=== PATIENT | female | born 1970 | race Caucasian/White ===

== ENCOUNTER → 2020-04-04 16:11 | Outpatient (BNVA) | payer OTHER, SELFPAY | PROVIDERS: Family Provider Nurse Practitioner; PCP Nurse Practitioner; Visit Provider Nurse Practitioner Family | DX: R13.10 Dysphagia, unspecified (principal); Z90.3 Acquired absence of stomach [part of]; I10 Essential (primary) hypertension; R00.2 Palpitations; M79.10 Myalgia, unspecified site; K21.0 Gastro-esophageal reflux disease with esophagitis; R53.83 Other fatigue; E11.65 Type 2 diabetes mellitus with hyperglycemia | CPT/HCPCS: 80053; 83036; 85025 ==

== ENCOUNTER → 2020-04-08 07:45 | Outpatient (BNVA) | payer OTHER, SELFPAY | PROVIDERS: Family Provider Nurse Practitioner; PCP Nurse Practitioner; Visit Provider Nurse Practitioner | DX: F43.12 Post-traumatic stress disorder, chronic (principal); F90.2 Attention-deficit hyperactivity disorder, combined type | CPT/HCPCS: 99213 ==

== ENCOUNTER 2020-04-18 11:30 | Outpatient (CLI) | payer OTHER, SELFPAY ==
--- NOTE | 2020-04-18 11:35 | FL_ITS ---
WS: [id number] FL barium swallow modifd [id number] REASON FOR EXAM: Other dysphagia FLUOROSCOPY TIME: 2.6 minutes FINDINGS: Fluoroscopy was performed for speech pathology please see their workup in the upper thoraci c esophagus there appears to be a stenotic areas the there was hang-up of the barium slow transmissio n and the barium pill lodged at that area bypass after water was ingested. FL/FL barium swallow modifd [id number] IMPRESSION: Suspect stenosis and spasm in the thoracic esophagus.
== END 2020-04-18 11:31 | disposition home or self-care (01) ==
LOC: RAD 11:34
PROVIDERS: PCP Internal Medicine; Visit Provider Nurse Practitioner Family
DX: R13.10 Dysphagia, unspecified (principal); Z90.3 Acquired absence of stomach [part of]
CPT/HCPCS: 74230; 92611

== ENCOUNTER 2020-04-23 08:28 | Emergency (ER) | payer OTHER, SELFPAY ==
[2020-04-23 08:34] VITALS: BP 177/93; PULSE 62; RESP 18; TEMP 36.8; O2SAT 98; BMI 36.8
[2020-04-23 08:40] VITALS: BP 165/89; PULSE 68; RESP 18
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
--- NOTE | 2020-04-23 09:03 | CTR_ITS ---
PROCEDURE INFORMATION: Exam: CT Cervical Spine Without Contrast Exam date and time: 04/23/2020 9:11 AM Age: 49 years old Clinical indication: Neck pain; Additional info: Neck pain with cervical radiculopathy TECHNIQUE: Imaging protocol: Computed tomography images of the cervical spine without contrast. Radiation optimization: All CT scans at this facility use at least one of these dose optimization techniques: automated exposure control; mA and/or kV adjustment per patient size (includes targeted exams where dose is matched to clinical indication); or iterative reconstruction. COMPARISON: No relevant prior studies available. RADIATION DOSE METRICS: Total DLP (mGy-cm): 772.53 FINDINGS: Vertebrae: No acute osseous pathology. Anatomic alignment. Diminished cervical lordosis. 1.0 cm intraosseous hemangioma in the right C6 vertebral body. Discs/Spinal canal/Neural foramina: Multilevel degenerative change and disc bulging. Right lateral C5-C6 disc bulging with mild right-sided foraminal stenosis. Note that assessment of disc, spinal cord, and nerve root pathology is limited in the absence of intrathecal contrast. Soft tissues: Unremarkable. Lymph nodes: Subcentimeter lymph nodes. Lungs: Unremarkable apices as visualized. CT/CT cervical spin wo con* [id number] IMPRESSION: 1. Multilevel degenerative change and disc bulging. 2. Right lateral C5-C6 disc bulging with mild right-sided foraminal stenosis. Radiation Dose CTDIVOL = (mGy): DLP = 772.53 (mGy-cm)
[2020-04-23] MEDS: orphenadrine 30 mg/mL Inj 2 mL 60 MG IVP (09:48)
[2020-04-23] MEDS: ondansetron 2 mg/ML SDV 2 mL 4 MG IVP (09:48)
[2020-04-23 09:49] VITALS: RESP 18; O2SAT 98
[2020-04-23] MEDS: HYDROmorphone 1 mg/mL INJ 1 mL 0.5 MG IVP (09:49)
[2020-04-23 10:24] VITALS: BP 155/80; PULSE 65; RESP 18
== END 2020-04-23 10:24 | disposition home or self-care (01) ==
PROVIDERS: Emergency Provider Family Medicine; PCP Internal Medicine
DX: M50.122 Cervical disc disorder at C5-C6 level with radiculopathy (principal); I10 Essential (primary) hypertension
CPT/HCPCS: 12345; 72125; 96374; 96375; 99283; J1170; J2360; J2405

== ENCOUNTER 2020-05-02 08:33 | Day surgery (SDC) | payer OTHER, SELFPAY ==
[2020-04-21 10:52] VITALS: BMI 36.8
[2020-05-02 09:00] VITALS: BP 131/93; PULSE 69; RESP 18; TEMP 37.1; O2SAT 99
--- NOTE | 2020-05-02 09:04 | ANES.PREANE2 ---
Pre-Anesthetic Assessment Pre-Anesthetic Assessment: Height/Weight: Height 1.7 m Weight 106.594 kg Temp Pulse Resp BP Pulse Ox 98.8 F 69 18 131/93 99 05/02/20 09:00 05/02/20 09:00 05/02/20 09:00 05/02/20 09:00 05/02/20 09:00 Preop Diagnosis: dysph Proposed Procedure: Operation Date: 05/02/20 09:30 Proposed Procedures p EGD With Botox Injection 83646 K22.4(Not Applicable) - Dewey Davis MD Familial anesthetic complications: None Was Beta Aaron taken within 24 hours: Yes Last intake: Intake Last Liquid Date 05/01/20 Last Liquid Time 23:30 Last Solid Date 05/01/20 Last Solid Time 23:30 Social: Social History: No alcohol and No tobacco Exam: Pre-Anes Outpt Exam: alert, oriented x 3, clear to auscultation bilaterally and regular rate & rhythm Airway: Cervical ROM: WNL MP: 3 Additional comments: removed Pulmonary: Pulmonary: None reported CV/HEM: CV/HEM: HTN : : None reported Hepatic: Comments: URIARTE w/ increased LFT GI: Comments: dysphagia, hx stomach resection no NG tube Metabolic: Metabolic: DM and Morbid obesity Musc/skel: Musc/skel: None reported Neuropsych: Neuropsych: None reported Anesthetic Plan: ASA status: 2 Anesthesia: MAC Risk of > 500 ml blood loss (7ml/kg in children): No PFSH Anesthesia PFSH: Medical History (Updated 05/01/20 @ 00:00 by ) HTN (hypertension) Hyperglycemia Myalgia Palpitations Post-traumatic stress disorder, chronic Reflux esophagitis Surgical History History of resection of stomach Family History Father Heart disease Family/Other Diabetes General Social History Smoking and tobacco status: never smoked Alcohol intake: current Alcohol intake frequency: holidays/special occasions only History of recent travel: No Female Reproductive History: Date of last menstrual period: 12/14/08 Data Anesthesia Cardiac Studies: No Data to Display
[2020-05-02] MEDS: sodium chloride 0.9% 1,000 ML 30 ML IV (09:15)
[2020-05-02 09:23] LABS: Glucose Point of Care 108 mg/dL (70-110)
--- NOTE | 2020-05-02 10:02 | W.PM.OPSUD ---
Surgery/Procedure H&P Update DATE OF PROCEDURE: May 02, 2020 DATE H&P PERFORMED: 04/19/20 PREOP DIAGNOSIS: dysph PLANNED PROCEDURE: Operation Date: 05/02/20 09:30 Proposed Procedures p EGD With Botox Injection 00357 K22.4(Not Applicable) - Dewey Davis MD
[2020-05-02 10:37] VITALS: BP 112/75; PULSE 73; RESP 16; TEMP 37.1; O2SAT 96
--- NOTE | 2020-05-02 10:47 | ANE.PACU2 ---
Inpatient post-anesthesia follow up: Airway intact: Yes Vital signs: Temperature 98.7 F Pulse Rate 73 Respiratory Rate 16 Blood Pressure 112/75 Pulse Oximetry 96 Oxygen Delivery Me thod Nasal Cannula Oxygen Flow Rate 2.0 Fraction of Inspir ed Oxygen Hydration adequate: Yes Nausea and vomiting: No Mental status: Baseline
[2020-05-02 10:50] VITALS: BP 129/79; PULSE 71; RESP 18; O2SAT 98
[2020-05-03 06:24] LABS: H. Pylori / CLO Test Negative
== END 2020-05-02 11:00 | disposition home or self-care (01) ==
PROVIDERS: PCP Internal Medicine; Visit Provider Internal Medicine
PROC: 3E0G8TZ Introduction of Destructive Agent into Upper GI, Via Natural or Artificial Opening Endoscopic (ICD-10-PCS; CPT 43236; principal; 2020-05-02 09:30)
DX: K22.4 Dyskinesia of esophagus (principal); Z98.84 Bariatric surgery status; K29.70 Gastritis, unspecified, without bleeding; I10 Essential (primary) hypertension; E11.9 Type 2 diabetes mellitus without complications; E66.01 Morbid (severe) obesity due to excess calories; Z68.36 Body mass index [BMI] 36.0-36.9, adult
CPT/HCPCS: 12345; 36416; 43236; 82962; 87077; J0585; J2704; J7030

== ENCOUNTER 2020-06-29 08:08 | Outpatient (CLI) | payer OTHER, SELFPAY ==
--- NOTE | 2020-06-29 08:45 | MR_ITS ---
WS: [id number] MRI CERVICAL SPINE NONCONTRAST TECHNIQUE: Sagittal T1, T2 and STIR imaging. Axial T2, gradient, and fiesta imaging. CLINICAL INFORMATION: M50.20 Other cervical disc displacement, unspecified cerv... COMPARISON: None. FINDINGS: Straightening of the normal cervical lordosis. No high-grade central canal narrowing. Cord signal is normal. Mild disc bulging C5-C6 and C6-C7. C2-C3: Normal. C3-C4: Minimal disc osteophytic ridging. Spinal canal and foramen are patent. Mild facet arthropathy. C4-C5: Mild disc osteophyte complex with endplate ridging. Tiny central disc osteophyte protrusion wi th slight effacement of ventral thecal sac. Mild left foraminal narrowing. Mild facet arthropathy. C5-C6: Disc osteophyte complex with endplate ridging. Mild central canal stenosis. Mild bilateral bon y foraminal narrowing left greater than right. Mild facet arthropathy. C6-C7: Shallow right pericentral disc osteophyte protrusion with slight effacement of ventral thecal sac. Mild facet arthropathy. Spinal canal and foramen are patent. C7-T1: Left eccentric disc osteophytic ridging. Mild left greater than right foraminal narrowing. Spi nal canal is patent. T1-T2: Normal. Disc bulging at C5-C6 and C6-C7 has slightly progressed since the MRI in 2013. MR/MR cervical spin wo con* [id number] IMPRESSION: 1. Straightening of the normal cervical lordosis. Cord signal is normal. 2. Mild central canal stenosis C5-C6 and C6-C7 due to shallow disc osteophyte protrusions more prominent at C5-6. 3. Mild bony foraminal narrowing more prominent at bilateral C5-C6 and left C7 -T1.
== END 2020-06-29 08:09 | disposition home or self-care (01) ==
LOC: RADSHAW 08:11
PROVIDERS: PCP Internal Medicine; Visit Provider Internal Medicine
DX: M50.20 Other cervical disc displacement, unspecified cervical region (principal); M48.02 Spinal stenosis, cervical region; M25.78 Osteophyte, vertebrae
CPT/HCPCS: 72141

== ENCOUNTER → 2020-07-28 15:48 | Outpatient (BNVA) | payer OTHER, SELFPAY | PROVIDERS: PCP Internal Medicine; Visit Provider Family Medicine | DX: Z20.828 Contact with and (suspected) exposure to other viral communicable diseases (principal) | CPT/HCPCS: 87635 ==

== ENCOUNTER → 2020-08-03 07:32 | Outpatient (BNVA) | payer OTHER, SELFPAY | PROVIDERS: PCP Internal Medicine; Visit Provider Nurse Practitioner | DX: F43.12 Post-traumatic stress disorder, chronic (principal); F90.2 Attention-deficit hyperactivity disorder, combined type | CPT/HCPCS: 99214 ==

== ENCOUNTER 2020-08-29 19:51 | Observation (INO) | payer OTHER, MEDICARE, SELFPAY ==
[2020-08-29] VITALS (8 sets, daily range): BP systolic 130–188; BP diastolic 70–106; PULSE 64–80; RESP 14–17; TEMP 36.2–36.5; O2SAT 92–97; BMI 36.0
--- NOTE | 2020-08-29 19:53 | ECG_ITS ---
[facility] Test Date: 2020-08-29 Pat Name: Reena Calvo Department: Room: Gender: Female [employer]: : 1970 Requested By: Luiz Bentley Order Number: [id number] Chacon MD: Eliana Olivares M.D. Measurements Intervals [place] Rate: 77 P: 51 VT: 164 QRS: 13 QRSD: 98 T: 23 QT: 374 QTc: 424 Interpretive Statements SINUS RHYTHM Compared to ECG 05/30/2016 08:01:19 Sinus bradycardia no longer present Electronically Signed On 08-30-2020 7:15:57 CDT by Eliana Olivares M.D. [id number]
--- NOTE | 2020-08-29 19:53 | XR_ITS ---
WS: [id number] Exam: XR chest 1V portable [id number] Date/Time of Exam: 08/29/2020 8:25 PM Reason For Exam: cp Findings: Comparison 01/28/2015. The lungs are clear and fully expanded. Normal cardiomediastinal structures and bony elements. No ple ural effusions. Monitor leads superimpose the chest. XR/XR chest 1V portable [id number] IMPRESSION: 1. Negative chest.
--- NOTE | 2020-08-29 19:59 | ED_ITS ---
HPI - Chest Pain General: Chief Complaint: Chest Pain Stated Complaint: cp Time Seen by Provider: 08/29/20 19:54 Source: patient Mode of arrival: ambulatory Limitations: no limitations History of Present Illness: HPI narrative: 50-year-old female states she has been having chest pain over the last 2 days. States been a sharp pain in center of her chest that radiates to her back. She states she also had epigastric abdominal pain. She saw her PCP 2 days ago and switched to a new antiacid and states it has not improved and is worsened. She denies any shortness of breath. She states that she does have a history of high blood pressure and is a diabetic. She has a strong family history of heart disease. MD complaint: chest pain Associated symptoms: Deny abdominal pain, dyspnea, fever(s), nausea or vomiting Review of Systems Const: Denies: fever(s), chills, body aches or change in appetite Eyes: Denies: blurry vision or eye discomfort ENMT: Denies: throat pain or dental pain Card: Reports: chest pain Resp: Denies: dyspnea GI: Denies: abdominal pain, nausea, vomiting or diarrhea : Denies: dysuria Musc: Denies: neck pain or back pain Skin/Breast: Denies: rash Neuro: Denies: headache(s) Psych: Denies: depression Arnold/Lymph: Denies: easy bruising All/Imm: Denies: urticaria PFSH ED PFSH: Medical History HTN (hypertension) Hyperglycemia Myalgia Palpitations Post-traumatic stress disorder, chronic Reflux esophagitis Surgical History History of resection of stomach Family History Father Heart disease Family/Other Diabetes General Social History Smoking and tobacco status: never smoked Alcohol intake: current Alcohol intake frequency: holidays/special occasions only History of recent travel: No Female Reproductive History: Date of last menstrual period: 12/14/08 Physical Exam Const: COMMON NORMALS: no acute distress, patient oriented x3 and healthy appearing HENMT: COMMON NORMALS: normocephalic and atraumatic HEAD & SCALP: normocephalic and atraumatic Eye: COMMON NORMALS: Equal, round and reactive pupils present and EOMs intact bilaterally PUPIL: Yes Equal, round and reactive pupils present Neck/C-Spine: COMMON NORMALS: full ROM and supple Chest: COMMONS NORMALS: normal inspection of the chest and normal palpation of entire chest wall Resp: COMMON NORMALS: normal respiratory effort, No retractions, No use of accessory muscles and clear to auscultation bilaterally AUSCULTATION: clear to auscultation bilaterally Cardio: COMMON NORMALS: regular rate, regular rhythm and No murmurs present (Cardio) RATE: regular rate RHYTHM: regular rhythm GI: COMMON NORMALS: Normal to inspection, nondistended, normoactive bowel sounds present, Soft to palpation, non-tender and no masses PALPATION: Yes Soft to palpation Extremity: COMMON NORMALS: normal to inspection and full ROM Neuro: COMMON NORMALS: patient oriented x3, moves all extremities and no focal motor deficits Psych: COMMON NORMALS: mental status grossly normal, Normal thought process present and cooperative THOUGHT PROCESS: Normal thought process present Skin: COMMON NORMALS: no rashes or lesions noted and no wounds GENERAL SKIN EXAM: no rashes or lesions noted Course Vital Signs: Vital signs: Vital Signs Temperature 97.1 F L 08/29/20 19:55 Pulse Rate 64 08/29/20 21:15 Respiratory Rate 14 08/29/20 21:15 Blood Pressure 137/89 08/29/20 21:15 Pulse Oximetry 97 08/29/20 21:15 MDM - Chest Pain MDM Narrative: Medical decision making narrative: Reena presents here with chest pain. Her initial troponin and EKG here are normal. Patient has multiple risk factors. Patient's x-ray here is normal. Patient's had multiple family members with heart attacks in the 40s she states that her last stress test was 19 years ago. I spoke to the hospitalist and will admit for observation she likely needs a stress test. Lab Data: Labs: Lab Results 08/29/20 08/29/20 08/29/20 Range/Units 20:10 20:10 20:10 WBC Cancelled Corrected WBC Cancelled RBC Cancelled Hgb Cancelled Hct Cancelled MCV Cancelled MCH Cancelled MCHC Cancelled RDW Cancelled Plt Count Cancelled MPV Cancelled Gran % Cancelled Neut % (Auto) Cancelled Lymph % (Auto) Cancelled [place] % (Auto) Cancelled Eos % (Auto) Cancelled Baso % (Auto) Cancelled Neut # (Auto) Cancelled Lymph # (Auto) Cancelled [place] # (Auto) Cancelled Eos # (Auto) Cancelled Baso # (Auto) Cancelled Absolute Gran (aut o) Cancelled Nucleated RBC % (a uto) Cancelled Nucleated RBCs # Cancelled PT 13.40 (12.1-14.9) SECO NDS INR 0.99 (0.8-1.2) D-Dimer 0.57 (0-0.59) ug/mIFE U Sodium 136 (136-145) mmol/L Potassium 4.2 (3.5-5.1) mmol/L Chloride 98 (98-107) mmol/L Carbon Dioxide 25 (22-29) mmol/L Anion Gap 17.2 (5-19) BUN 11 (6-20) mg/dL Creatinine 0.8 (0.5-0.9) mg/dL GFR Calculation 76.2 L (90-130) mL/min Glucose 105 (65-115) mg/dL Calculated Osmolal ity 282 L (285-295) mOsm/k g Calcium 9.2 (8.5-10.5) mg/dL Total Bilirubin 0.2 (0.15-1.2) mg/dL AST 48 H (0-32) U/L ALT 50 H (0-33) U/L Alkaline Phosphata se 61 (35-105) IU/L Troponin T Baselin e (0-10) ng/L Total Protein 7.8 (6.6-8.7) g/dL Albumin 4.5 (3.5-5.2) g/dL Globulin 3.3 (1.3-4.6) g/dL Lipase 74 H (13-60) U/L 08/29/20 08/29/20 Range/Units 20:10 20:35 WBC 10.8 H Corrected WBC RBC 4.82 Hgb 14.6 Hct 43.9 MCV 91.1 MCH 30.3 MCHC 33.3 RDW 13.1 Plt Count 317 MPV 11.0 H Gran % Neut % (Auto) 49.4 Lymph % (Auto) 40.1 [place] % (Auto) 5.5 Eos % (Auto) 3.9 Baso % (Auto) 0.8 Neut # (Auto) 5.34 Lymph # (Auto) 4.3 [place] # (Auto) 0.6 Eos # (Auto) 0.4 Baso # (Auto) 0.1 Absolute Gran (aut o) Nucleated RBC % (a uto) 0 Nucleated RBCs # 0.0 PT (12.1-14.9) SECO NDS INR (0.8-1.2) D-Dimer (0-0.59) ug/mIFE U Sodium (136-145) mmol/L Potassium (3.5-5.1) mmol/L Chloride (98-107) mmol/L Carbon Dioxide (22-29) mmol/L Anion Gap (5-19) BUN (6-20) mg/dL Creatinine (0.5-0.9) mg/dL GFR Calculation (90-130) mL/min Glucose (65-115) mg/dL Calculated Osmolal ity (285-295) mOsm/k g Calcium (8.5-10.5) mg/dL Total Bilirubin (0.15-1.2) mg/dL AST (0-32) U/L ALT (0-33) U/L Alkaline Phosphata se (35-105) IU/L Troponin T Baselin e 6 (0-10) ng/L Total Protein (6.6-8.7) g/dL Albumin (3.5-5.2) g/dL Globulin (1.3-4.6) g/dL Lipase (13-60) U/L Imaging Data^: CXR: Attestation: I personally reviewed and interpreted this imaging study as follows: My impression: no acute abnormality EKG Data^: EKG 1: Attestation: I personally reviewed and interpreted this EKG as follows: EKG interpretation date: 08/29/20 EKG interpretation time: 19:57 Interpretation: nsr hr [address] or t wave abnormalities qrs 98 qtc 406 EKG 2: Attestation: I personally reviewed and interpreted this EKG as follows: EKG interpretation date: 08/29/20 EKG interpretation time: 21:33 Interpretation: nsr hr [address] or t wave abnormalities qrs 93 qtc 408 Discharge Plan Discharge Patient Disposition: Admitted As Inpatient Clinical Impression: Chest pain Qualifiers: Chest pain type: unspecified Qualified Code(s): R07.9 - Chest pain, unspecified Condition: Stable Referrals: Dewey Davis MD [Primary Care Provider] - Coding Level of Care Code ED [employer]working [employer] Hand for Chg Fwd Exam Comprehensive
[2020-08-29] MEDS: aspirin 81 mg Chew Tablet 324 MG PO (20:15)
[2020-08-29] MEDS: nitroglycerin 0.4 mg sublingual Tablet SUBLINGUAL (20:15)
[2020-08-29 20:45] LABS: Basophils # 0.1 10^3/uL (0.0-0.1); Basophils % 0.8 %; Eosinophils # 0.4 10^3/uL (0.0-0.8); Eosinophils % 3.9 %; Hematocrit 43.9 % (37.0-47.0); Hemoglobin 14.6 g/dL (11.5-15.3); Lymphocytes # 4.3 10^3/uL (0.8-4.8); Lymphocytes % 40.1 %; Mean Corpuscular HGB Conc 33.3 g/dL (30.0-36.0); Mean Corpuscular Hemoglobin 30.3 pg (28.0-34.0); Mean Corpuscular Volume 91.1 fL (81-99); Monocytes # 0.6 10^3/uL (0.2-0.9); Monocytes % 5.5 %; Neutrophils # 5.34 10^3/uL (1.8-7.7); Neutrophils % 49.4 %; Nucleated Red Blood Cells % 0 %; Platelet Count 317 10^3/cmm (130-400); Red Blood Count 4.82 10^6/uL (4.1-5.3); Red Cell Distribution Width 13.1 % (12.1-15.1); White Blood Count 10.8 10^3/uL (4.0-10.0)
[2020-08-29 20:49] LABS: Alanine Aminotransferase 50 U/L (0-33); Albumin Level 4.5 g/dL (3.5-5.2); Alkaline Phosphatase 61 IU/L (35-105); Blood Urea Nitrogen 11 mg/dL (6-20); Calcium 9.2 mg/dL (8.5-10.5); Carbon Dioxide 25 mmol/L (22-29); Chloride 98 mmol/L (98-107); Globulin 3.3 g/dL (1.3-4.6); Glomerular Filtration Rate 76.2 mL/min (90-130); Glucose 105 mg/dL (65-115); Lipase 74 U/L (13-60); Osmolality Calculated 282 mOsm/kg (285-295); Sodium 136 mmol/L (136-145); Total Bilirubin 0.2 mg/dL (0.15-1.2); Total Protein 7.8 g/dL (6.6-8.7)
[2020-08-29 20:50] LABS: Troponin(5th) Baseline 6 ng/L (0-10)
[2020-08-29 20:51] LABS: Anion Gap 17.2 (5-19)
[2020-08-29 20:52] LABS: Aspartate Amino Transferase 48 U/L (0-32); Potassium 4.2 mmol/L (3.5-5.1)
[2020-08-29 21:11] LABS: INR 0.99 (0.8-1.2)
[2020-08-29 21:13] LABS: D Dimer 0.57 ug/mIFEU (0-0.59)
[2020-08-29] MEDS: ondansetron 2 mg/ML SDV 2 mL 4 MG IVP (21:44)
--- NOTE | 2020-08-29 21:49 | PM.HP ---
Providers/Chief Complaint Primary Care Provider: Dewey Davis MD Chief Complaint: cp History of Present Illness Reena Calvo is a 50 year old female who carries significant history of gastritis, previous EGD 04/23 showed showed dyskinesia of esophagus, gastritis, with erosions, esophageal spasm, family history of premature coronary disease, came in today with chief complaint of chest pain. She has been experiencing epigastric discomfort which she initially attributed to GERD, her antacid has been changed recently which seemed to relieve her symptoms. Patient is stating that today at work around 5:55 PM she started experiencing substernal discomfort which was radiating towards her neck and back, it lasted for about 3 seconds, it made her feel very uncomfortable, she also felt dizzy which she is describing as lightheadedness. She did not experience any falls, her pain subsided spontaneously, no recurrence of symptoms, she went to the ER, EKG showing normal sinus rhythm, troponins negative x2, unremarkable blood work, D-dimer negative, abnormal transaminases, At the time my evaluation blood pressure 140/90, afebrile, pulse 66, not complaining of active chest pain Review of Systems Const: Denies: fever(s), chills or fatigue Eyes: Denies: change in vision ENMT: Reports: throat pain Card: Reports: chest pain and pre-syncope; Denies: palpitations, irregular heart rhythm, swelling of feet/ankles, dyspnea on exertion or orthopnea Resp: Denies: dyspnea GI: Reports: abdominal pain and nausea; Denies: vomiting, diarrhea or constipation : Denies: flank pain Musc: Reports: neck pain Skin/Breast: Denies: rash Neuro: Denies: headache(s) Psych: Denies: anxiety Endo: Denies: polyuria Arnold/Lymph: Denies: easy bruising All/Imm: Denies: urticaria Medications/Allergies Home Medications Medication Instructions Recorded Confirmed Last Taken Type rzbjgnq-egusmebdbuekq-fcaxmrvl 250 1 tab PO DAILY PRN tab 11/10/19 08/24/20 Unknown History mg-250 mg-65 mg tablet bupropion HCl 150 mg tablet,12 hr 150 mg PO DAILY tab 11/10/19 08/24/20 05/01/20 History sustained-release cetirizine 10 mg capsule 10 mg PO DAILY cap 11/10/19 08/24/20 05/01/20 History multivitamin 1 tab PO QAM 11/10/19 08/24/20 05/01/20 History DIM SGS + 1 cap PO DAILY 04/26/20 08/24/20 05/01/20 History blood-glucose meter #1 each 04/26/20 08/24/20 Unknown Rx ibuprofen 800 mg tablet 800 mg PO Q8H 06/10/20 08/24/20 Unknown History metformin 500 mg tablet 500 mg PO BID #60 tab 06/30/20 08/24/20 Unknown Rx furosemide 20 mg tablet 20 mg PO QAM PRN #30 tab 07/05/20 08/24/20 Unknown Rx lisinopril 30 mg tablet 15 mg PO DAILY tab 07/05/20 08/24/20 Unknown History fluticasone propionate 50 2 spray INTRANASAL DAILY #9.9 ml 07/26/20 08/24/20 Unknown Rx mcg/actuation nasal spray,suspension clonazepam 0.5 mg tablet 0.5 mg PO TID PRN #90 tab 08/03/20 08/24/20 Unknown Rx metoprolol succinate 25 mg 25 mg PO DAILY #90 tab 08/17/20 08/24/20 Unknown Rx tablet,extended release 24 hr dexlansoprazole 60 mg 60 mg PO DAILY #30 cap 08/24/20 08/24/20 Unknown Rx capsule,biphase delayed release Allergies Allergy/AdvReac Type Severity Reaction Status Date / Time ketorolac [From Toradol] Allergy Severe ALGY-Anaphy Verified 08/29/20 20:00 laxis morphine Allergy Severe ADR-Chest Verified 08/29/20 20:00 Pain bupivacaine Allergy Unknown ALGY-Hives Verified 08/29/20 20:00 chlorpheniramine Allergy Unknown ALGY-Wheezi Verified 08/29/20 20:00 [From Creomulsion Complete] ng cyclobenzaprine Allergy Unknown Unknown Verified 08/29/20 20:00 [From Flexeril] dextromethorphan Allergy Unknown ALGY-Wheezi Verified 08/29/20 20:00 [From Creomulsion Complete] ng pseudoephedrine Allergy Unknown ALGY-Wheezi Verified 08/29/20 20:00 [From Creomulsion Complete] ng PFSH Acute PFSH: Medical History Depression History of retinal detachment surgerical repair HTN (hypertension) Hyperglycemia Myalgia Obesity Palpitations Paresthesia Bulging disc, paresthesia upper extremities, Post-traumatic stress disorder, chronic Reflux esophagitis Sleep apnea, obstructive Vitamin D deficiency Surgical History History of back surgery History of carpal tunnel release of both wrists History of cholecystectomy History of hysterectomy History of resection of stomach History of tonsillectomy Family History Father Heart disease CA age 46, Family/Other Diabetes General Sister Heart disease sister had CA, LAD involvement @ age 42 Social History Smoking and tobacco status: never smoked Alcohol intake: current Alcohol intake frequency: holidays/special occasions only History of recent travel: No Female Reproductive History: Date of last menstrual period: 12/14/08 Vitals/I&O/Wt Last Vital Signs Temp 97.1 F L 08/29/20 19:55 Pulse 64 08/29/20 21:15 Resp 14 08/29/20 21:15 BP 137/89 08/29/20 21:15 Pulse Ox 97 08/29/20 21:15 Weight last 48 hrs Weight 104.326 kg Physical Exam Narrative: EXAM NARRATIVE: Middle-age female laying comfortably in her bed No active chest pain Saturating well on room air, normal hemodynamics S1, S2 no tachycardia or signs of fluid overload EOMI, PERRLA, Awake alert oriented x3 GCS 15 Midepigastric abdominal tenderness on superficial palpation otherwise abdomen distended and soft Lower extremity no edema gangrene or ulcer No acute respiratory distress Appropriate mood and affect No skin ulcers Data : 08/29/20 20:35 08/29/20 20:10 A&P Assessment and plan (1) Chest pain: Status: Acute Qualifiers: Chest pain type: unspecified Qualified Code(s): R07.9 - Chest pain, unspecified (2) Epigastric abdominal pain: Status: Acute (3) C6 radiculopathy: Status: Acute (4) Bulging of cervical intervertebral disc: Status: Acute (5) Esophageal dysfunction: Status: Acute Additional A&P Information Atypical chest pain EKG unremarkable, troponins negative x2, no active chest pain She has history of esophageal spasm I do suspect esophageal spasm to be the etiology of her substernal discomfort We will try GI cocktail Considering family history of premature coronary artery disease I would get Lexiscan stress test in the morning to rule out wall motion abnormality and coronary ischemia D-dimer unremarkable, no radio- radial delay, check lipase level Hold metoprolol succinate. Esophageal dysfunction PCP Dr. Davis, she has also received Botox treatment as well which seemed to relieve her symptoms, Continue omeprazole/Protonix GI cocktail x1 now Might benefit from a calcium channel lizzy or nitrates C6 radiculopathy due to bulging of cervical intervertebral disc No acute exacerbation, Full code N.p.o. after midnight DVT prophylaxis Lovenox Attestations Medical Necessity Statement*: Anticipating discharge in less than 48 hours considering premature coronary disease family history I will get Lexiscan stress test in the morning Time Spent in Patient Care: (>than 50% of time spent in counselling and/or direct pt care on unit). 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
--- NOTE | 2020-08-29 21:51 | PC.NURSE ---
reported pain 5/10 stomach and chest also c/o headache 4/[address] Bentley given zofran IV
--- NOTE | 2020-08-29 21:53 | ECG_ITS ---
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 Measurements Intervals [place] Rate: 64 P: 16 UT: 199 QRS: 9 QRSD: 93 T: 23 QT: 399 QTc: 412 Interpretive Statements SINUS RHYTHM Compared to ECG 08/29/2020 19:57:41 No significant changes Electronically Signed On 08-30-2020 7:34:38 CDT by Eliana Olivares M.D. [id number]
[2020-08-29] MEDS: HYDROmorphone 1 mg/mL INJ 1 mL 0.5 MG IVP (21:58)
[2020-08-29 22:39] LABS: Troponin 5 2HR 6.23 ng/L (0-10); Troponin 5 2HR Delta 0.23 ABS# (0-10)
--- NOTE | 2020-08-29 23:03 | ECG_ITS ---
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 The perfusion scan will be documented separately. DATA: Baseline heart rate was 62 beats per minute. Baseline blood pressure was 153/82 millimeters of mercury. Target heart rate was 171. Maximum heart rate achieved was 113 . which was 66 % of the predicted target heart rate. Maximum blood pressure was 179/83 millimeters of mercury. The reason for ending the test was completion of the protocol. The patient did not experience any symptoms. ELECTROCARDIOGRAM: BASELINE: Sinus rhythm. Normal axis. Otherwise, no ST-T changes suggestive of ischemia noted. No arrhythmia noted. EXERCISE: After Lexiscan injection, no ST-T changes suggestive of ischemic noted. No arrhythmia noted. 1. EKG not suggestive of ischemia 2. Lexiscan injection unremarkable. 3. Perfusion scan will be documented separately. Electronically Signed On 09-16-2020 15:19:15 PUBLIC WORKS MANAGER by CHRISTOPHE ADRIAN [id number]
--- NOTE | 2020-08-29 23:19 | PC.NURSE ---
Admit: Patient arrived from ER . Patient alert and oriented. States her abdominal and chest pain is very dull. patient oriented to room. call light within reach. and bed in low position.
[2020-08-29] MEDS: lidocaine 2% viscous 15 ML, aluminum-mag hydrox-simethicon 30 ML, sucralfate oral liq 1 GM PO (23:34)
[2020-08-29] MEDS: enoxaparin 40 mg/0.4 mL Syringe SUBCUT (23:39)
[2020-08-30] VITALS (8 sets, daily range): BP systolic 114–151; BP diastolic 62–88; PULSE 64–85; RESP 13–18; TEMP 36.6–36.8; O2SAT 91–96
--- NOTE | 2020-08-30 01:53 | ECG_ITS ---
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
[2020-08-30 02:17] LABS: Troponin 5 6HR 6.75 ng/L (0-10); Troponin 5 6HR Delta 0.75 ng/L (0-12)
[2020-08-30] MEDS: ondansetron 2 mg/ML SDV 2 mL 4 MG IVP ×3 (02:24→15:09)
--- NOTE | 2020-08-30 02:33 | PC.NURSE ---
Dr. Cruz stopped by patients room to discuess pain medication options with her. Orders recived for 1mg of diludid x1 IVP read back verbal order.
[2020-08-30] MEDS: HYDROmorphone 1 mg/mL INJ 1 mL IVP (02:42)
--- NOTE | 2020-08-30 02:54 | PC.NURSE ---
Patient did not want morphine states it causes abdominal pain/chest pain. discussed this with Dr. Cruz. see prior note about what medication he prescribed.
--- NOTE | 2020-08-30 03:53 | PC.NURSE ---
Patient placed on 2L due oxygen saturations being 86 to 87% while sleeping. after oxygen appplied saturation came up to 94%.
--- NOTE | 2020-08-30 05:12 | PC.NURSE ---
End of shift: Patient rested off and on. Patients pain went away after medications. patients vitals remain stable.
[2020-08-30 07:04] LABS: Glucose Point of Care 135 mg/dL (70-110)
[2020-08-30] MEDS: regadenoson 0.4 Mg/5 ml Syringe IVP (08:28)
--- NOTE | 2020-08-30 09:13 | PC.CHAP ---
Pastoral Care Encounter/Spiritual Assessment Type of Contact [] Declined builder beam visit [] Patient/Family/Request visit [] Outpatient visit [] Follow-up visit [] Physician referral [] Code/Alert [] Routine visit [] Staff referral [] Actively dying [] Patient sleeping [] Family support [] [x] Out of room [] Palliative care [] [] Receiving care in room [] Pre-surgical visit [] Trauma [] Long length of stay [] ICU visit [x] Other: testing Relational/Emotional Strength [] Patient feels connected with others/family/visitors/staff [] Distress [] Loneliness/isolation [] Abandonment Spirituality of Patient [] Person of Lawanda [] Attends Restorationist of their Lawanda [] Believes in Prayer [] Reads Bible or Bahai materials [] There are Spiritual issues to be addressed Train Station Server Interventions [x] Prayer [] Active listening [] Non-anxious presence [] Spiritual/emotional support [] Crisis/trauma care [] Spiritual counseling [] Bereavement support [] Provided bereavement packet [] Provided Bible/devotional materials [] Provided toy/stuffed animal, coloring book to patient or family member [] Provided Communion [] Anointing/Dickey [] Salvation [x] Completed spiritual assessment [] Other: Impact on Illness or Injury [] Angry [] Fearful [] Anxious [] Often cries [] Exhaustion [] Unable to work [] Unable to attend mu-ism [] Unable to walk/stand [] Unable to read [] Unable to drive [] Unable to eat/drink [] Unable to sleep [] Unable to be with family [] Patient intubated [] Other: Summary Time spent with patient
[2020-08-30] MEDS: buPROPion SR (12 HR) 150 mg Tablet PO (10:03)
[2020-08-30] MEDS: lisinopril 5 mg Tablet 15 MG PO (10:03)
[2020-08-30] MEDS: pantoprazole DR 40 mg Tablet PO (10:03)
--- NOTE | 2020-08-30 10:36 | P.PN_ITS ---
Subjective Subjective: Interval history: Patient was taken for nuclear stress test which was found to be low risk. Subsequently was continued to have abdominal discomfort, nausea and dry heaving. No shortness of breath. No chest discomfort. Vitals/I&O/Wt Last Vital Signs Temp 98 F 08/30/20 03:02 Pulse 85 08/30/20 08:44 Resp 16 08/30/20 03:02 BP 148/80 08/30/20 08:44 Pulse Ox 96 08/30/20 03:02 08/29/20 08/30/20 08/30/20 22:59 06:59 14:59 Intake Total 120 / 120 Output Total 300 / 300 Balance -180 / -180 Weight last 48 hrs Weight 104.326 kg Physical Exam Narrative: EXAM NARRATIVE: Middle-age female laying comfortably in her bed No active chest pain Saturating well on room air, normal hemodynamics S1, S2 no tachycardia or signs of fluid overload EOMI, PERRLA, Awake alert oriented x3 GCS 15 Tenderness primarily in mid epigastric region. No rebound Lower extremity no edema gangrene or ulcer No acute respiratory distress Appropriate mood and affect No skin ulcers Data : 08/29/20 20:35 08/29/20 20:10 A&P Assessment and plan (1) Chest pain: Status: Resolved Qualifiers: Chest pain type: unspecified Qualified Code(s): R07.9 - Chest pain, unspecified (2) Epigastric abdominal pain: Status: Acute (3) C6 radiculopathy: Status: Acute (4) Bulging of cervical intervertebral disc: Status: Acute (5) Esophageal dysfunction: Status: Acute Additional A&P Information Atypical chest pain Nuclear stress test did not show any evidence of significant reversible ischemia. Esophageal dysfunction Discuss with primary care physician CT abdomen pelvis with IV contrast ordered Continue PPI Might benefit from a calcium channel lizzy or nitrates C6 radiculopathy due to bulging of cervical intervertebral disc No acute exacerbation, Full code Start clear liquid diet after abdominal imaging DVT prophylaxis Lovenox Attestations Medical Necessity Statement*: Due to persistent abdominal pain and inability to tolerate oral intake patient require further hospitalization for additional diagnostic testing. 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
[2020-08-30 11:26] LABS: Glucose Point of Care 106 mg/dL (70-110)
[2020-08-30] MEDS: metoprolol succinate ER (24 HR) 25 mg Tablet PO (11:40)
--- NOTE | 2020-08-30 13:47 | CT_ITS ---
WS: [id number] Exam: CT abdomen pelvis w con* [id number] Date/Time of Exam: 08/30/2020 1:51 PM Reason For Exam: Mid-epigastric abdominal pain, Intatable, unable to tolerate Technique: Axial contiguous CT images with coronal and sagital reformats. DLP: 1583.[address] scans at [facility] use at least one of these dose optimization techniques: automat ed exposure control; mA and/or kV adjustment per patient size (includes targeted exams where dose is matched to clinical indication); or iterative reconstruction. Findings: Mild plaque atelectasis in the lower lung zones. The liver, spleen, stomach and pancreas appear keara l. The gallbladder is surgically absent. The abdominal aorta is normal in caliber. The portal vein an d IVC are patent. Unremarkable kidneys and adrenal glands. No free air. No lymphadenopathy. Small bow el loops are not dilated. Postoperative changes of the gastric antrum. No free air. No lymphadenopath y. Normal appendix visualized. Several scattered isolated colonic diverticuli noted. No mass or adeno jessica in the pelvis. Intact urinary bladder. No destructive bone lesions. Moderate posterior disc bul ge at L2-3. Wedge-shaped deformity of T11 that could represent an old mild compression fracture versu s developmental deformity. CT/CT abdomen pelvis w con* [id number] IMPRESSION: 1. No mass, adenopathy or acute finding in the abdomen or pelvis. 2. Several isolated colonic diverticuli are noted. Additional minor nonacute fi ndings as above.
[2020-08-30] MEDS: iohexol 300 mg/mL 100 mL Btl IV (14:56)
[2020-08-30] MEDS: iohexol 300 mg/mL 50 mL Btl PO (14:57)
[2020-08-30] MEDS: metoclopramide 5 mg/mL SDV 2 mL 10 MG IVP (15:40)
[2020-08-30 16:32] LABS: Glucose Point of Care 92 mg/dL (70-110)
--- NOTE | 2020-08-30 17:53 | PC.NURSE ---
DISCHARGE PATIENT'S DISCHARGE IS ON HOLD DUE TO CONTINUED EPIGASTRIC PAIN AND WORSENING NAUSEA. PER DR. SHAHID.
--- NOTE | 2020-08-30 19:31 | PC.NURSE ---
Rounding: PAtient resting in bed with eyes closed easily awakened. Patient denies any pain or discomfort at this time.
[2020-08-30 20:29] LABS: Glucose Point of Care 120 mg/dL (70-110)
--- NOTE | 2020-08-30 23:03 | NMCV_ITS ---
NM kristie perf SPECT r/s* [id number] Reena Calvo Age: 50 Gender: F : 1970 Exam Date: 08/30/2020 07:38 Ordering Phys: Christophe Cruz MD Technologist: JADA Van Exam Location: [facility] Indications: Chest pain STRESS TEST Please see separate stress test report in [facility] for full findings IMAGE PROTOCOL Rest/Stress 1 Lexiscan Day Radiopharmaceutical Dose (mCi) Administration Site Administered by Rest: Tc-99m 11.0 IV JADA Flores Stress:Tc-99m 33.0 IV JADA Van Rest: 30-Aug-2020 60 Discovery 630 Stress: 30-Aug-2020 60 Discovery 630 0.4mg Lexiscan. Images obtained in supine and prone position. SPECT RESULTS Technical Quality: Good Raw Data Analysis: Breast attenuation, Soft tissue attenuation Image Corrections: No attenuation or motion correction applied Summed Stress Score: 1 Summed Rest Score: 1 Summed Difference Score: 0 PERFUSION FINDINGS SPECT images demonstrate homogeneous tracer distribution throughout the myocardium. FUNCTIONAL RESULTS (calculated via Gated SPECT) Stress Image LV EF (%): 76 Stress EDV (mL):62 TID: 1.07 Stress ESV (mL):15 Rest Image LV EF (%): 79 FUNCTIONAL FINDINGS: There is normal left ventricular systolic function. IMPRESSIONS Myocardial perfusion imaging is normal. EKG segment will be documented separately. Christophe Malloy MD (Electronically Signed) Final Date: 30 August 2020 12:37 S
[2020-08-31 03:15] VITALS: BP 124/66; PULSE 65; RESP 20; TEMP 36.8; O2SAT 92
[2020-08-31 06:17] LABS: Glucose Point of Care 153 mg/dL (70-110)
[2020-08-31 07:09] VITALS: BP 120/57; PULSE 67; RESP 23; TEMP 36.8; O2SAT 96
[2020-08-31] MEDS: buPROPion SR (12 HR) 150 mg Tablet PO (08:42)
[2020-08-31] MEDS: metoprolol succinate ER (24 HR) 25 mg Tablet PO (08:42)
[2020-08-31] MEDS: pantoprazole DR 40 mg Tablet PO (08:42)
[2020-08-31] MEDS: lisinopril 5 mg Tablet 15 MG PO (08:42)
[2020-08-31 09:11] VITALS: BP 120/57; PULSE 67; RESP 23; TEMP 36.8; O2SAT 96
--- NOTE | 2020-08-31 18:58 | PM.DCS ---
Discharge Providers Date of Admission: 08/29/20 21:20 Date of Discharge: August 31, 2020 Attending Provider at Admission: Christophe Cruz MD Attending Provider at Discharge: Julia Monge Primary Care Provider: Dewey Davis MD Diagnoses at Discharge Discharge Diagnosis (1) Chest pain: Status: Resolved Qualifiers: Chest pain type: unspecified Qualified Code(s): R07.9 - Chest pain, unspecified (2) Epigastric abdominal pain: Status: Acute (3) C6 radiculopathy: Status: Acute (4) Bulging of cervical intervertebral disc: Status: Acute (5) Esophageal dysfunction: Status: Acute Reason for Visit Reason for Visit: cp Hospital Course Hospital Course: 50 year old female who carries significant history of gastritis, previous EGD 04/23 showed showed dyskinesia of esophagus, gastritis, with erosions, esophageal spasm, family history of premature coronary disease, came in today with chief complaint of chest pain. She has been experiencing epigastric discomfort which she initially attributed to GERD, her antacid has been changed recently which seemed to relieve her symptoms. Patient is stating that today at work around 5:55 PM she started experiencing substernal discomfort which was radiating towards her neck and back, it lasted for about 3 seconds, it made her feel very uncomfortable, she also felt dizzy which she is describing as lightheadedness. She did not experience any falls, her pain subsided spontaneously, no recurrence of symptoms, she went to the ER, EKG showing normal sinus rhythm, troponins negative x2, unremarkable blood work, D-dimer negative, abnormal transaminases, At the time my evaluation blood pressure 140/90, afebrile, pulse 66, not complaining of active chest pain Upon admission to the hospital patient was scheduled for nuclear stress test. This did not show any evidence of reversible ischemia. Post nuclear stress test patient continued to have abdominal discomfort, nausea.Due to this persistent abdominal discomfort patient was taken for CT abdomen pelvis with contrast. Did not show any acute abnormalities. Likely to be secondary to esophageal dysfunction which in the past required Botox treatment. This was discussed with patient's primary care physician. Patient advised to continue PPI as previously prescribed. Also advised to follow-up with primary care physician shortly after discharge. Physical Exam Narrative: EXAM NARRATIVE: Middle-age female laying comfortably in her bed No active chest pain Saturating well on room air, normal hemodynamics S1, S2 no tachycardia or signs of fluid overload EOMI, PERRLA, Awake alert oriented x3 GCS 15 Abdominal disconfort resolved. no significant tenderness Lower extremity no edema gangrene or ulcer No acute respiratory distress Appropriate mood and affect No skin ulcers Discharge Data Data Completed and Pending: Completed Studies During Hospitalization Category Date Time Status CT abdomen pelvis w con* [id number] Rout ine Cat Scan 08/30/20 13:47 Completed Sestamibi Stress Test Request Routi ne Exams 08/29/20 23:03 Draft XR chest 1V pratima ble [id number] Stat Exams 08/29/20 19:53 Completed NM kristie perf SPECT r/s* [id number] Routin e Nuc Med 08/30/20 23:03 Completed Vitals: Last Vital Signs Temp 98.3 F 08/31/20 09:11 Pulse 67 08/31/20 09:11 Resp 23 H 08/31/20 09:11 BP 120/57 08/31/20 09:11 Pulse Ox 96 08/31/20 09:11 Discharge Plan Discharge Patient Disposition: Home Condition: Stable Prescriptions: Continued lisinopril 30 mg tablet 15 mg PO DAILY RF: 0 furosemide [Lasix] 20 mg tablet 20 mg PO QAM PRN (Reason: edema) Qty: 30 RF: 8 fluticasone propionate [Flonase Allergy Relief] 50 mcg/actuation spray,suspension 2 spray INTRANASAL DAILY Qty: 9.9 RF: 0 clonazepam 0.5 mg tablet 0.5 mg PO TID PRN (Reason: anxiety) Qty: 90 RF: 1 Dexilant 60 mg capsule,biphase delayed releas 60 mg PO DAILY Qty: 30 RF: 0 Excedrin Migraine 250-250-65 mg tablet 1 - 2 tab PO DAILY PRN (Reason: Headache) RF: 0 bupropion HCl [Wellbutrin SR] 150 mg tablet sustained-release 12 hr 150 mg PO DAILY RF: 0 Zyrtec 10 mg capsule 10 mg PO DAILY RF: 0 metformin 500 mg tablet 500 mg PO BID Qty: 60 RF: 0 metoprolol succinate 25 mg tablet extended release 24 hr 25 mg PO DAILY Qty: 90 RF: 3 Discharge Orders: Discharge Order (Routine); Ordered 08/30/20 Ordered By: Julia Monge Referrals: Dewey Davis MD [Primary Care Provider] - (Please, follow-up with Dr. Davis on Sep.06 at 3:15p.m. If you have any questions or need to reschedule. 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
== END 2020-08-31 09:30 | disposition home or self-care (01) ==
LOC: ER 21:33 → CSU 08-30 03:00
PROVIDERS: Emergency Medicine; Admitting Provider Internal Medicine; PCP Internal Medicine; Visit Provider Hospitalist
DX: R07.89 Other chest pain (principal); R10.13 Epigastric pain; M54.12 Radiculopathy, cervical region; K22.4 Dyskinesia of esophagus; Z79.82 Long term (current) use of aspirin; I10 Essential (primary) hypertension; E66.9 Obesity, unspecified; Z68.36 Body mass index [BMI] 36.0-36.9, adult; G47.30 Sleep apnea, unspecified; E55.9 Vitamin D deficiency, unspecified
CPT/HCPCS: 12345; 36415; 36416; 71045; 74177; 78452; 80053; 82962; 83690; 84484; 85025; 85378; 85610; 93005; 93017; 96372; 96375; 99283; 99285; A9500; G0378; J1170; J1650; J1815; J2405; J2765; J2785; Q9967

== ENCOUNTER → 2020-12-02 07:49 | Outpatient (BNVA) | payer OTHER, SELFPAY | PROVIDERS: PCP Internal Medicine; Visit Provider Nurse Practitioner | DX: F43.12 Post-traumatic stress disorder, chronic (principal) | CPT/HCPCS: 99214 ==

== ENCOUNTER 2020-12-26 15:54 | Outpatient (CLI) | payer OTHER, SELFPAY ==
--- NOTE | 2020-12-26 16:21 | XR_ITS ---
WS: [id number] Exam: XR chest 2V* [id number] Date/Time of Exam: 12/26/2020 4:21 PM Reason For Exam: R06.00 - Dyspnea, unspecified Comparison 08/29/2020. Findings: The lungs are clear and fully expanded. Costophrenic angles are sharp. No infiltrates. Bronchovascula r relief appears normal. Cardiac silhouette is unremarkable. Bony elements are intact. XR/XR chest 2V* [id number] IMPRESSION: Unremarkable chest radiograph.
== END 2020-12-26 15:55 | disposition home or self-care (01) ==
PROVIDERS: PCP Internal Medicine; Visit Provider Internal Medicine
DX: J06.9 Acute upper respiratory infection, unspecified (principal); R06.00 Dyspnea, unspecified
CPT/HCPCS: 71046; 87635

== ENCOUNTER → 2021-01-31 07:47 | Outpatient (BNVA) | payer OTHER, SELFPAY | PROVIDERS: PCP Internal Medicine; Visit Provider Nurse Practitioner | DX: F43.12 Post-traumatic stress disorder, chronic (principal) | CPT/HCPCS: 99214 ==

== ENCOUNTER → 2021-03-30 15:53 | Outpatient (BNVA) | payer OTHER, SELFPAY | PROVIDERS: PCP Internal Medicine; Visit Provider Internal Medicine | DX: E11.9 Type 2 diabetes mellitus without complications (principal); G47.33 Obstructive sleep apnea (adult) (pediatric); I10 Essential (primary) hypertension | CPT/HCPCS: 80053; 80061; 82652; 83036; 84443; 85025 ==

== ENCOUNTER 2021-05-08 04:10 | Emergency (ER) | payer OTHER, SELFPAY ==
[2021-05-08] VITALS (10 sets, daily range): BP systolic 117–194; BP diastolic 83–113; PULSE 63–81; RESP 13–20; TEMP 37.2; O2SAT 87–95; BMI 35.4
--- NOTE | 2021-05-08 04:47 | ECG_ITS ---
[facility] Test Date: 2021-05-08 Pat Name: Reena Calvo Department: Room: Gender: Female Position Classification Manager: : 1970 Requested By: Bang Orr Order Number: [id number] Oswaldo MD: YI ADRIAN Measurements Intervals [place] Rate: 69 P: 20 MS: 178 QRS: 7 QRSD: 90 T: 8 QT: 385 QTc: 414 Interpretive Statements SINUS RHYTHM INFERIOR MYOCARDIAL INFARCTION [40+ ms Q WAVE AND/OR ST/T ABNORMALITY IN II/aVF], PROBABLY OLD Compared to ECG 08/30/2020 01:44:56 Myocardial infarct finding now present Electronically Signed On 05-08-2021 18:49:12 CDT by YI ADRIAN [email or web address] ([email or web address]) montgomery va medical centerGreen Highland Renewablesmercy health st[facility].CHIC.TV/store/NU/[id number] f
--- NOTE | 2021-05-08 04:47 | XRR_ITS ---
PROCEDURE INFORMATION: Exam: XR Chest Exam date and time: 05/08/2021 4:47 AM Age: 50 years old Clinical indication: Pain; Chest pressure; Additional info: Cp TECHNIQUE: Imaging protocol: XR of the chest. Views: 1 view. COMPARISON: CR XR chest 2V* [id number] 12/26/2020 4:30 PM FINDINGS: Lungs: There are low lung volumes. Otherwise, the lungs are clear. Pleural spaces: Unremarkable. No pleural effusion. No pneumothorax. Heart/Mediastinum: Unremarkable. No cardiomegaly. Bones/joints: Unremarkable. XR/XR chest 1V portable [id number] IMPRESSION: There are low lung volumes. Otherwise, the lungs are clear.
[2021-05-08] MEDS: nitroglycerin 0.4 mg sublingual Tablet SUBLINGUAL (05:06)
[2021-05-08] MEDS: aspirin 81 mg Chew Tablet 324 MG PO (05:06)
[2021-05-08] MEDS: nitroglycerin 1 gm/inch oint Pkt 1 INCH TOPICAL (05:06)
[2021-05-08] MEDS: fentaNYL 50 mcg/mL INJ 2mL IVP (05:07)
[2021-05-08] MEDS: ondansetron 2 mg/ML SDV 2 mL 4 MG IVP (06:17)
[2021-05-08 06:19] LABS: Basophils # 0.1 10^3/uL (0.0-0.1); Basophils % 1.4 %; Eosinophils # 0.2 10^3/uL (0.0-0.8); Eosinophils % 4.4 %; Hemoglobin 14.7 g/dL (11.5-15.3); Lymphocytes # 1.7 10^3/uL (0.8-4.8); Lymphocytes % 47.3 %; Mean Corpuscular HGB Conc 33.4 g/dL (30.0-36.0); Mean Corpuscular Hemoglobin 30.3 pg (28.0-34.0); Mean Corpuscular Volume 90.7 fL (81-99); Monocytes # 0.4 10^3/uL (0.2-0.9); Monocytes % 11.5 %; Neutrophils # 1.29 10^3/uL (1.8-7.7); Neutrophils % 35.1 %; Nucleated Red Blood Cells % 0 %; Platelet Count 203 10^3/cmm (130-400); Red Blood Count 4.85 10^6/uL (4.1-5.3); Red Cell Distribution Width 13.9 % (12.1-15.1); White Blood Count 3.7 10^3/uL (4.0-10.0)
[2021-05-08 06:31] LABS: Troponin(5th) Baseline 6 ng/L (0-10)
[2021-05-08 06:40] LABS: Alanine Aminotransferase 84 U/L (0-33); Alkaline Phosphatase 75 IU/L (35-105); Aspartate Amino Transferase 79 U/L (0-32); Blood Urea Nitrogen 8 mg/dL (6-20); Calcium 8.6 mg/dL (8.5-10.5); Carbon Dioxide 25 mmol/L (22-29); Chloride 102 mmol/L (98-107); Creatine Phosphokinase 100 U/L (26-192); Globulin 2.6 g/dL (1.3-4.6); Glomerular Filtration Rate 106.3 mL/min (90-130); Glucose 132 mg/dL (65-115); NT Pro B Type Natriuretic Pept 21 pg/mL (0-125); Osmolality Calculated 288 mOsm/kg (285-295); Sodium 139 mmol/L (136-145); Total Bilirubin 0.2 mg/dL (0.15-1.2); Total Protein 6.6 g/dL (6.6-8.7)
--- NOTE | 2021-05-08 06:47 | ECG_ITS ---
[facility] Test Date: 2021-05-08 Pat Name: Reena Calvo Department: Room: Gender: Female Bone Grinder: : 1970 Requested By: Bang Orr Order Number: [id number] Oswaldo MD: YI ADRIAN Measurements Intervals [place] Rate: 66 P: 7 [place]: 186 QRS: 6 QRSD: 110 T: 22 QT: 408 QTc: 429 Interpretive Statements SINUS RHYTHM LOW QRS VOLTAGE IN PRECORDIAL LEADS [QRS DEFLECTION < 1.0 mV IN CHEST LEADS] INFERIOR MYOCARDIAL INFARCTION [40+ ms Q WAVE AND/OR ST/T ABNORMALITY IN II/aVF], PROBABLY OLD Compared to ECG 05/08/2021 04:43:02 Low QRS voltage now present Myocardial infarct finding still present Electronically Signed On 05-08-2021 18:52:36 CDT by YI ADRIAN [email or web address]/[id number]
--- NOTE | 2021-05-08 07:49 | W.ED.CHESTPA ---
HPI - Chest Pain General: Chief Complaint: Chest Pain Stated Complaint: covid+, chest pain Time Seen by Provider: 05/08/21 04:27 History of Present Illness: HPI narrative: 50-year-old female with a history of diabetes and hypertension, tested positive for Covid on Saturday. She presents with chest discomfort. Chest discomfort is mid back, radiating into her chest anteriorly. Is a strong family history of coronary disease. The pain woke her from sleep. He is experiencing some mild shortness of breath. She is also having cough and body aches from the Covid. complaint: chest pain Pertinent past history: other Onset (ago): hour(s) Timing of current episode: constant Prior episodes: No Onset: awoke with symptoms Pain location: substernal and other (Mid back) Pain radiation: back Quality: aching Relieving factors: nothing Exacerbating factors: nothing Context: recent illness Associated symptoms: Reports dyspnea, fever(s) and nausea; Deny abdominal pain, diaphoresis, leg edema, palpitations, syncope or vomiting Treatment prior to arrival: aspirin Review of Systems Const: Reports: fever(s); Denies: diaphoresis Eyes: Denies: change in vision Card: Reports: chest pain; Denies: palpitations, edema or syncope Resp: Reports: dyspnea GI: Reports: nausea; Denies: abdominal pain or vomiting Neuro: Denies: dizziness [facility] ED PFS: Medical History (Updated 05/08/21 @ 08:36 by Bang Flores DO) Bulging of cervical intervertebral disc C6 radiculopathy Depression Esophageal dysfunction History of retinal detachment surgerical repair HTN (hypertension) Hyperglycemia Myalgia Obesity Palpitations Paresthesia Bulging disc, paresthesia upper extremities, Post-traumatic stress disorder, chronic Reflux esophagitis Sleep apnea, obstructive Vitamin D deficiency Surgical History History of back surgery History of carpal tunnel release of both wrists History of cholecystectomy History of hysterectomy History of resection of stomach History of tonsillectomy Family History Father Heart disease [place] age 46, Family/Other Diabetes General Sister Heart disease sister had [place], LAD involvement @ age 42 Social History Smoking and tobacco status: never smoked Alcohol intake: current Alcohol intake frequency: holidays/special occasions only History of recent travel: No Female Reproductive History: Date of last menstrual period: 12/14/08 Physical Exam Const: GENERAL APPEARANCE: well developed ORIENTATION/CONSCIOUSNESS: Yes oriented to person, Yes oriented to place and Yes oriented to time HENMT: COMMON NORMALS: normocephalic and Normal external nose present HEAD & SCALP: normocephalic FACE & SINUS: normal facial exam NOSE: Normal external nose present Eye: COMMON NORMALS: Equal, round and reactive pupils present, EOMs intact bilaterally and conjunctivae normal EYELID: eyelids normal CONJUNCTIVA: Yes conjunctivae normal PUPIL: Yes Equal, round and reactive pupils present Neck/C-Spine: GENERAL: No tracheal deviation Chest: COMMONS NORMALS: normal inspection of the chest CHEST: No tenderness Resp: COMMON NORMALS: clear to auscultation bilaterally EFFORT & INSPECTION: No tachypneic, No respiratory distress, No retractions, No uses accessory muscles and No tracheal deviation AUSCULTATION: clear to auscultation bilaterally, no rhonchi, no wheezes and lung sounds not diminished Cardio: COMMON NORMALS: regular rate and regular rhythm RATE: regular rate RHYTHM: regular rhythm HEART SOUNDS: no murmurs PERIPHERAL PULSES: radial pulses present GI: INSPECTION: No abdominal distension AUSCULTATION: No Hyperactive bowel sounds present Neuro: SENSORIUM/ORIENTATION: Yes oriented to person, Yes oriented to place and Yes oriented to time Psych: COMMON NORMALS: mental status grossly normal Skin: COMMON NORMALS: no rashes or lesions noted GENERAL SKIN EXAM: no rashes or lesions noted Course Vital Signs: Vital signs: Vital Signs Temperature 98.9 F 05/08/21 05:00 Pulse Rate 67 05/08/21 08:06 Respiratory Rate 19 H 05/08/21 08:06 Blood Pressure 136/86 05/08/21 07:00 Pulse Oximetry 94 05/08/21 08:06 MDM - Chest Pain MDM Narrative: Medical decision making narrative: 50-year-old female who awoke with chest pain. She has COVID-19. Her EKG does not show any acute ST changes. There are Q waves in the inferior leads which are mildly concerning heart rates have been in the 60s. [place] is normal. Her white blood cell count is 3.7. Her troponin is 6. Repeat at 2 hours is 6 as well. Her D-dimer is 0.6. Chest x-ray is negative for infiltrate. She is marginally hypoxic, but not requiring oxygen and no respiratory distress. She will get the monoclonal antibody infusion, and go home. Symptomatic treatment otherwise Lab Data: Labs: Lab Results 05/08/21 05/08/21 05/08/21 Range/Units 06:00 06:00 06:00 WBC 3.7 L (4.0-10.0) 10^3/ uL RBC 4.85 (4.1-5.3) 10^6/u L Hgb 14.7 (11.5-15.3) g/dL Hct 44.0 (37.0-47.0) % MCV 90.7 (81-99) fL MCH 30.3 (28.0-34.0) pg MCHC 33.4 (30.0-36.0) g/dL RDW 13.9 (12.1-15.1) % Plt Count 203 (130-400) 10^3/c mm MPV 11.0 H (7.4-10.4) fL Neut % (Auto) 35.1 % Lymph % (Auto) 47.3 % [place] % (Auto) 11.5 % Eos % (Auto) 4.4 % Baso % (Auto) 1.4 % Neut # (Auto) 1.29 L (1.8-7.7) 10^3/u L Lymph # (Auto) 1.7 (0.8-4.8) 10^3/u L [place] # (Auto) 0.4 (0.2-0.9) 10^3/u L Eos # (Auto) 0.2 (0.0-0.8) 10^3/u L Baso # (Auto) 0.1 (0.0-0.1) 10^3/u L Nucleated RBC % (a uto) 0 % Nucleated RBCs # 0.0 /100WBC D-Dimer (0-0.59) ug/mIFE U Sodium 139 (136-145) mmol/L Potassium 4.0 (3.5-5.1) mmol/L Chloride 102 (98-107) mmol/L Carbon Dioxide 25 (22-29) mmol/L Anion Gap 16.0 (5-19) BUN 8 (6-20) mg/dL Creatinine 0.6 (0.5-0.9) mg/dL GFR Calculation 106.3 (90-130) mL/min Glucose 132 H (65-115) mg/dL Calculated Osmolal ity 288 (285-295) mOsm/k g Lactate (0.5-2.2) mmol/L Calcium 8.6 (8.5-10.5) mg/dL Total Bilirubin 0.2 (0.15-1.2) mg/dL AST 79 H (0-32) U/L ALT 84 H (0-33) U/L Alkaline Phosphata se 75 (35-105) IU/L Creatine Kinase 100 (26-192) U/L Troponin T Baselin e 6 (0-10) ng/L Troponin T 120 Min [place] (0-10) ng/L Delta Troponin T (0-10) ABS# NT-Pro-B Natriuret Pep 21 (0-125) pg/mL Total Protein 6.6 (6.6-8.7) g/dL Albumin 4.0 (3.5-5.2) g/dL Globulin 2.6 (1.3-4.6) g/dL 05/08/21 05/08/21 05/08/21 Range/Units 08:07 08:07 08:07 WBC (4.0-10.0) 10^3/ uL RBC (4.1-5.3) 10^6/u L Hgb (11.5-15.3) g/dL Hct (37.0-47.0) % MCV (81-99) fL MCH (28.0-34.0) pg MCHC (30.0-36.0) g/dL RDW (12.1-15.1) % Plt Count (130-400) 10^3/c mm MPV (7.4-10.4) fL Neut % (Auto) % Lymph % (Auto) % [place] % (Auto) % Eos % (Auto) % Baso % (Auto) % Neut # (Auto) (1.8-7.7) 10^3/u L Lymph # (Auto) (0.8-4.8) 10^3/u L [place] # (Auto) (0.2-0.9) 10^3/u L Eos # (Auto) (0.0-0.8) 10^3/u L Baso # (Auto) (0.0-0.1) 10^3/u L Nucleated RBC % (a uto) % Nucleated RBCs # /100WBC D-Dimer 0.60 H (0-0.59) ug/mIFE U Sodium (136-145) mmol/L Potassium (3.5-5.1) mmol/L Chloride (98-107) mmol/L Carbon Dioxide (22-29) mmol/L Anion Gap (5-19) BUN (6-20) mg/dL Creatinine (0.5-0.9) mg/dL GFR Calculation (90-130) mL/min Glucose (65-115) mg/dL Calculated Osmolal ity (285-295) mOsm/k g Lactate 1.1 (0.5-2.2) mmol/L Calcium (8.5-10.5) mg/dL Total Bilirubin (0.15-1.2) mg/dL AST (0-32) U/L ALT (0-33) U/L Alkaline Phosphata se (35-105) IU/L Creatine Kinase (26-192) U/L Troponin T Baselin e (0-10) ng/L Troponin T 120 Min [place] 6.00 (0-10) ng/L Delta Troponin T 0 (0-10) ABS# NT-Pro-B Natriuret Pep (0-125) pg/mL Total Protein (6.6-8.7) g/dL Albumin (3.5-5.2) g/dL Globulin (1.3-4.6) g/dL Discharge Plan Discharge Patient Disposition: Home Clinical Impression: COVID-19 Chest pain Qualifiers: Chest pain type: unspecified Qualified Code(s): R07.9 - Chest pain, unspecified Condition: Stable Prescriptions: New Percocet 7.5-325 mg tablet 1 tab PO Q6H PRN (Reason: pain) Qty: 10 RF: 0 dexamethasone 6 mg tablet 6 mg PO DAILY Qty: 5 RF: 0 No Action furosemide [Lasix] 20 mg tablet 20 mg PO QAM PRN (Reason: edema) Qty: 30 RF: 8 fluticasone propionate [Flonase Allergy Relief] 50 mcg/actuation spray,suspension 2 spray INTRANASAL DAILY Qty: 9.9 RF: 0 Dexilant 60 mg capsule,biphase delayed releas 60 mg PO DAILY Qty: 30 RF: 0 doxycycline hyclate 100 mg capsule 100 mg PO BID RF: 0 bupropion HCl [Wellbutrin XL] 300 mg tablet extended release 24 hr 300 mg PO QAM Qty: 30 RF: 2 Excedrin Migraine 250-250-65 mg tablet 1 - 2 tab PO DAILY PRN (Reason: Headache) RF: 0 Zyrtec 10 mg capsule 10 mg PO DAILY RF: 0 clonazepam 0.5 mg tablet 0.5 mg PO TID PRN (Reason: anxiety) Qty: 90 RF: 2 metoprolol succinate [Toprol XL] 100 mg tablet extended release 24 hr 100 mg PO DAILY Qty: 90 RF: 3 metformin 500 mg tablet 500 mg PO BID Qty: 60 RF: 6 albuterol sulfate [Ventolin HFA] 90 mcg/actuation HFA aerosol inhaler 2 puff inhalation Q6H PRN (Reason: shortness of breath or wheezing) Qty: 8.5 RF: 0 pzeipljvuc-nmdlpxpwhmuie-iyiw 50-325-40 mg capsule 1 cap PO Q6H PRN (Reason: pain) Qty: 30 RF: 0 Discharge Orders: Discharge ED (Routine); Ordered 05/08/21 Ordered By: Bang Flores Referrals: Dewey Davis MD [Primary Care Provider] - 1-3 days Patient Instructions: Chest Pain (ED), Acute Bronchitis (ED) Activity Restrictions/Additional Instructions: Return for worsening pain despite treatment, worsening shortness of breath, inability to control fever, any other concerning symptoms. Coding Level of Care Code ED Truck Mechanic for Nickie Fwd Exam Comprehensive
[2021-05-08 08:32] LABS: Troponin 5 2HR Delta 0 ABS# (0-10)
[2021-05-08 08:35] LABS: Lactate (Lactic Acid level) 1.1 mmol/L (0.5-2.2)
[2021-05-08] MEDS: acetaminophen 325 mg Tablet 650 MG PO (10:38)
--- NOTE | 2021-05-11 14:40 | DCPLANNER ---
manager location had message that patient received the BAM infusion. manager location called and spoke with patient after getting the infusion to check on patient to see how she was feeling. Patient stated that she is feeling a little bit better every day, she is feeling better today than she has before she had the infusion. Patient stated that she is not having any fever, and no more body aches. Patient did say that she is having sporadic headaches, she has been coughing stuff up, and she has the diarrhea. Patient stated that overall she is feeling better.
== END 2021-05-08 11:12 | disposition home or self-care (01) ==
PROVIDERS: Emergency Provider Emergency Medicine; PCP Internal Medicine
DX: U07.1 COVID-19 (principal); R07.9 Chest pain, unspecified; Z79.84 Long term (current) use of oral hypoglycemic drugs; I10 Essential (primary) hypertension
CPT/HCPCS: 36415; 71045; 80053; 82550; 83605; 83880; 84484; 85025; 85378; 93005; 96365; 96375; 99284; J2405; J3010

== ENCOUNTER → 2021-08-28 10:30 | Outpatient (BNVA) | payer OTHER, SELFPAY | PROVIDERS: PCP Internal Medicine; Visit Provider Nurse Practitioner Family | DX: I10 Essential (primary) hypertension (principal); R00.2 Palpitations; I47.1 Supraventricular tachycardia; J06.9 Acute upper respiratory infection, unspecified; J01.90 Acute sinusitis, unspecified | CPT/HCPCS: 87400; 87635 ==

== ENCOUNTER 2021-09-01 12:20 | Outpatient (CLI) | payer OTHER, SELFPAY ==
[2021-09-01 12:35] VITALS: BP 145/85; PULSE 60; RESP 20; TEMP 36.9; O2SAT 95; BMI 29.4
[2021-09-01 14:12] VITALS: BP 148/89; PULSE 66; RESP 18; TEMP 36.9; O2SAT 97
== END 2021-09-01 12:21 | disposition home or self-care (01) ==
LOC: OPS 12:23
PROVIDERS: PCP Internal Medicine; Visit Provider Nurse Practitioner Family
DX: U07.1 COVID-19 (principal)
CPT/HCPCS: 96365

== ENCOUNTER 2021-09-04 11:38 | Emergency (ER) | payer OTHER, SELFPAY ==
--- NOTE | 2021-09-04 12:12 | PC.NURSE ---
while with pt she is alert oriented and answering questions appropriately. pt hr is 67bpm, spo2 on ra is 96%, and rr of 16/min.
[2021-09-04 13:00] VITALS: BP 154/96; PULSE 63; RESP 16; TEMP 37; O2SAT 98; BMI 29.4
--- NOTE | 2021-09-04 14:42 | ECG_ITS ---
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
--- NOTE | 2021-09-04 14:42 | XRR_ITS ---
PROCEDURE INFORMATION: Exam: XR Chest Exam date and time: 09/04/2021 2:42 PM Age: 51 years old Clinical indication: Cough and dyspnea; Additional info: Dyspnea/cough TECHNIQUE: Imaging protocol: XR of the chest. Views: 1 view. COMPARISON: CR XR chest 1V portable [id number] 05/08/2021 5:54 AM FINDINGS: Lungs: Unremarkable. No consolidation. Pleural spaces: Unremarkable. No pleural effusion. No pneumothorax. Heart/Mediastinum: Unremarkable. No cardiomegaly. Bones/joints: Unremarkable. XR/XR chest 1V portable [id number] IMPRESSION: No acute findings. Radiation Dose CTDIVOL = (mGy): DLP = (mGy-cm)
[2021-09-04 16:17] VITALS: BP 163/96; PULSE 74; RESP 19; O2SAT 98
--- NOTE | 2021-09-04 16:22 | W.ED.ARRPALP ---
HPI - Arrhythmia/Palpitations General: Chief Complaint: Arrhythmia/Palpitations Stated Complaint: COVID +/LOW HEART RATE & O2 Time Seen by Provider: 09/04/21 15:55 History of Present Illness: HPI narrative: 51-year-old female comes in complaining of palpitations. She relates a lot of that to having gotten Covid vaccinations and had having monoclonal antibodies she did recently test positive for Covid her breathing has been relatively good she not been particularly short of breath she has had some mild myalgias flulike symptoms low-grade fever and cough initially had some loose stools but all of this is for the most part resolved. She initially test positive on 1022 6 she is at approximately day 10 since onset of symptoms. MD complaint: skipped beats , palpitations and irregular heart beat Onset (ago): day(s) Duration: intermittent Severity: mild Context: occurred during rest Associated symptoms: Reports cough, diaphoresis, muscle cramps, nausea and short of breath; Deny anxiety, paresthesias, pre-syncope, sense of impending doom, syncope or vomiting Review of Systems Const: Reports: diaphoresis ENMT: Denies: throat pain, ear or mastoid pain, nasal discharge or nasal congestion Card: Denies: syncope or pre-syncope Resp: Denies: dyspnea, productive cough or non-productive cough GI: Reports: nausea; Denies: vomiting : Denies: flank pain, difficulty voiding, dysuria, urinary frequency or urinary urgency Musc: Reports: muscle cramps Skin/Breast: Denies: rash or pruritus Psych: Denies: anxiety PFSH ED PFSH: Medical History Bulging of cervical intervertebral disc C6 radiculopathy Depression Esophageal dysfunction History of retinal detachment surgerical repair HTN (hypertension) Hyperglycemia Myalgia Obesity Palpitations Paresthesia Bulging disc, paresthesia upper extremities, Post-traumatic stress disorder, chronic Psychiatric care Reflux esophagitis Sleep apnea, obstructive Vitamin D deficiency Surgical History History of back surgery History of carpal tunnel release of both wrists History of cholecystectomy History of hysterectomy History of resection of stomach History of tonsillectomy Family History Father Heart disease [place] age 46, Family/Other Diabetes General Sister Heart disease sister had [place], LAD involvement @ age 42 Social History Smoking and tobacco status: never smoked Alcohol intake: current Alcohol intake frequency: holidays/special occasions only History of recent travel: No Female Reproductive History: Date of last menstrual period: 12/14/08 Physical Exam Const: COMMON NORMALS: no acute distress GENERAL APPEARANCE: cooperative and comfortable ORIENTATION/CONSCIOUSNESS: Yes awake, Yes oriented to person, Yes oriented to place and Yes oriented to time HENMT: COMMON NORMALS: normocephalic, atraumatic and hearing grossly normal bilaterally HEAD & SCALP: normocephalic and atraumatic Neck/C-Spine: COMMON NORMALS: no JVD Resp: COMMON NORMALS: normal respiratory effort, No retractions, No use of accessory muscles and clear to auscultation bilaterally AUSCULTATION: clear to auscultation bilaterally Cardio: COMMON NORMALS: no JVD, regular rate, regular rhythm and No murmurs present (Cardio) RATE: regular rate RHYTHM: regular rhythm GI: COMMON NORMALS: Soft to palpation and No hepatosplenomegaly present AUSCULTATION: Yes normoactive bowel sounds PALPATION: Yes Soft to palpation, No Tenderness to palpation present (GI), No Guarding due to palpation present (GI) and Yes No hepatosplenomegaly present Extremity: COMMON NORMALS: normal to inspection, capillary refill normal, no clubbing, cyanosis or edema, no calf tenderness and no pedal edema Neuro: SENSORIUM/ORIENTATION: Yes oriented to person, Yes oriented to place and Yes oriented to time Skin: COMMON NORMALS: no rashes or lesions noted GENERAL SKIN EXAM: no rashes or lesions noted Course Vital Signs: Vital signs: Vital Signs Temperature 98.6 F 09/04/21 13:00 Pulse Rate 67 09/04/21 19:07 Respiratory Rate 14 09/04/21 19:07 Blood Pressure 148/107 09/04/21 19:07 Pulse Oximetry 94 09/04/21 19:07 MDM - Arrhythmia/Palpitations MDM Narrative: Medical decision making narrative: Labs and x-ray unremarkable. She could be having more palpitations due to the Covid infection which did not particularly alarming were unpredicted. She was having these palpitations prior to the Covid infection as well and they are likely just on the stress of her system to be exacerbated. For now I would just observe supportive cares if persist after her acute Covid symptomology has resolved, she may do well to have an event monitor through her PCP. Lab Data: Labs: Lab Results 09/04/21 09/04/21 09/04/21 16:35 16:35 16:35 WBC 8.6 10^3/uL 10^3/ uL (4.0-10.0) RBC 4.84 10^6/uL 10^6 /uL (4.1-5.3) Hgb 15.3 g/dL g/dL (11.5-15.3) Hct 46.2 % % (37.0-47.0) MCV 95.5 fl fl (81-99) MCH 31.6 pg pg (28.0-34.0) MCHC 33.1 g/dL g/dL (30.0-36.0) RDW 12.5 % % (12.1-15.1) Plt Count 221 10^3/cmm 10^3 /cmm (130-400) MPV 11.0 fL H fL (7.4-10.4) Neut % (Auto) 50.2 % % Lymph % (Auto) 38.3 % % [place] % (Auto) 6.5 % % Eos % (Auto) 4.1 % % Baso % (Auto) 0.8 % % Neut # (Auto) 4.34 10^3/uL 10^3 /uL (1.8-7.7) Lymph # (Auto) 3.3 10^3/uL 10^3/ uL (0.8-4.8) [place] # (Auto) 0.6 10^3/uL 10^3/ uL (0.2-0.9) Eos # (Auto) 0.4 10^3/uL 10^3/ uL (0.0-0.8) Baso # (Auto) 0.1 10^3/uL 10^3/ uL (0.0-0.1) Nucleated RBC % (a uto) 0 % % Nucleated RBCs # 0.0 /100WBC /100W BC Sodium 140 mmol/L mmol/L (136-145) Potassium 4.3 mmol/L mmol/L (3.5-5.1) Chloride 105 mmol/L mmol/L (98-107) Carbon Dioxide 28 mmol/L mmol/L (22-29) Anion Gap 11.3 (5-19) BUN 17 mg/dL mg/dL (6-20) Creatinine 0.6 mg/dL mg/dL (0.5-0.9) GFR Calculation 105.8 mL/min mL/m in (90-130) Glucose 89 mg/dL mg/dL (65-115) Calculated Osmolal ity 291 mOsm/kg mOsm/ kg (285-295) Calcium 9.5 mg/dL mg/dL (8.5-10.5) Total Bilirubin 0.3 mg/dL mg/dL (0.15-1.2) AST 20 U/L U/L (0-32) ALT 23 U/L U/L (0-33) Alkaline Phosphata se 63 IU/L IU/L (35-105) Total Protein 7.4 g/dL g/dL (6.6-8.7) Albumin 4.2 g/dL g/dL (3.5-5.2) Globulin 3.2 g/dL g/dL (1.3-4.6) TSH 1.49 uIU/mL uIU/m L (0.27-4.20) Discharge Plan Discharge Patient Disposition: Home Clinical Impression: COVID-19, Palpitations Condition: Stable Prescriptions: No Action metoprolol succinate [Toprol XL] 100 mg tablet extended release 24 hr 25 mg PO DAILY RF: 0 losartan 25 mg tablet 25 mg PO DAILY Qty: 30 RF: 0 doxycycline monohydrate 100 mg capsule 100 mg PO BID 5 Days Qty: 10 RF: 0 Excedrin Migraine 250-250-65 mg tablet 1 - 2 tab PO DAILY PRN (Reason: Headache) RF: 0 Zyrtec 10 mg capsule 10 mg PO DAILY RF: 0 bupropion HCl [Wellbutrin XL] 300 mg tablet extended release 24 hr 300 mg PO QAM Qty: 30 RF: 2 bupropion HCl [Wellbutrin XL] 150 mg tablet extended release 24 hr 150 mg PO QAM Qty: 30 RF: 2 Pulmicort Flexhaler 90 mcg/actuation aerosol powdr breath activated 2 inh inhalation BID Qty: 1 RF: 0 metformin 500 mg tablet 500 mg PO BID Qty: 60 RF: 6 vwfjibjoxb-qdhmahfnulfsr-mide 50-325-40 mg capsule 1 cap PO Q6H PRN (Reason: pain) Qty: 30 RF: 0 clonazepam 0.5 mg tablet 0.5 mg PO TID PRN (Reason: anxiety) Qty: 90 RF: 2 albuterol sulfate [Ventolin HFA] 90 mcg/actuation HFA aerosol inhaler 2 puff inhalation Q6H PRN (Reason: shortness of breath or wheezing) Qty: 8.5 RF: 0 Discharge Orders: Discharge ED (Routine); Ordered 09/04/21 Ordered By: Kahlil Davis Referrals: Dewey Davis MD [Primary Care Provider] - Discharge Diet: Usual diet Discharge Activity: Resume usual activity Patient Instructions: Opioid Safety Activity Restrictions/Additional Instructions: case managements will call to make arrangements for an event monitor Coding Level of Care Code ED Bicycle Designer for Nickie Fwd Exam Comprehensive
[2021-09-04 16:43] LABS: Basophils # 0.1 10^3/uL (0.0-0.1); Basophils % 0.8 %; Eosinophils # 0.4 10^3/uL (0.0-0.8); Eosinophils % 4.1 %; Hematocrit 46.2 % (37.0-47.0); Hemoglobin 15.3 g/dL (11.5-15.3); Lymphocytes # 3.3 10^3/uL (0.8-4.8); Lymphocytes % 38.3 %; Mean Corpuscular HGB Conc 33.1 g/dL (30.0-36.0); Mean Corpuscular Hemoglobin 31.6 pg (28.0-34.0); Mean Corpuscular Volume 95.5 fl (81-99); Monocytes # 0.6 10^3/uL (0.2-0.9); Monocytes % 6.5 %; Neutrophils # 4.34 10^3/uL (1.8-7.7); Neutrophils % 50.2 %; Nucleated Red Blood Cells % 0 %; Platelet Count 221 10^3/cmm (130-400); Red Blood Count 4.84 10^6/uL (4.1-5.3); Red Cell Distribution Width 12.5 % (12.1-15.1); White Blood Count 8.6 10^3/uL (4.0-10.0)
[2021-09-04 17:02] LABS: Alanine Aminotransferase 23 U/L (0-33); Albumin Level 4.2 g/dL (3.5-5.2); Alkaline Phosphatase 63 IU/L (35-105); Anion Gap 11.3 (5-19); Aspartate Amino Transferase 20 U/L (0-32); Blood Urea Nitrogen 17 mg/dL (6-20); Calcium 9.5 mg/dL (8.5-10.5); Carbon Dioxide 28 mmol/L (22-29); Chloride 105 mmol/L (98-107); Globulin 3.2 g/dL (1.3-4.6); Glomerular Filtration Rate 105.8 mL/min (90-130); Glucose 89 mg/dL (65-115); Osmolality Calculated 291 mOsm/kg (285-295); Potassium 4.3 mmol/L (3.5-5.1); Sodium 140 mmol/L (136-145); Total Bilirubin 0.3 mg/dL (0.15-1.2); Total Protein 7.4 g/dL (6.6-8.7)
[2021-09-04 17:41] LABS: Thyroid Stimulating Hormone 1.49 uIU/mL (0.27-4.20)
[2021-09-04 19:07] VITALS: BP 148/107; PULSE 67; RESP 14; O2SAT 94
--- NOTE | 2021-09-06 10:41 | DCPLANNER ---
account manager forest service had message to schedule an event monitor for patient with heart care. account manager forest service faxed signed order to heart care, clinic will call patient with appointment information.
--- NOTE | 2021-09-13 13:31 | DCPLANNER ---
Patient had an appointment for an event monitor scheduled for 09.08.21 with [facility] - patient did attend appointment.
== END 2021-09-04 19:08 | disposition home or self-care (01) ==
PROVIDERS: Emergency Provider Family Medicine; PCP Internal Medicine
DX: U07.1 COVID-19 (principal); R00.2 Palpitations; Z79.84 Long term (current) use of oral hypoglycemic drugs; I10 Essential (primary) hypertension; F32.A Depression, unspecified
CPT/HCPCS: 36415; 71045; 80053; 84443; 85025; 93005; 99283

== ENCOUNTER 2021-11-17 13:57 | Outpatient (CLI) | payer OTHER, SELFPAY ==
--- NOTE | 2021-11-17 14:15 | USCV_ITS ---
Reena Calvo Age: 51 Gender: F : 1970 Exam Date: 11/17/2021 14:20 Ordering Phys: Eliana Olivares MD ([email or web address]) Technologist: EULALIO Exam Location: [facility] Indication: Ventricular premature depolarization BP: 142 / 88 HR: 63 Rhythm: Sinus Technical Quality: Technically difficult study MEASUREMENTS (Male / Female) Normal Values 2D ECHO LV Diastolic Diameter PLAX 3.1 cm 4.2 - 5.9 / 3.9 - 5.3 cm LV Systolic Diameter PLAX 2.8 cm IVS Diastolic Thickness 1.4 cm 0.6 - 1.0 / 0.6 - 0.9 cm IVS Systolic Thickness 1.9 cm LVPW Diastolic Thickness 1.3 cm 0.6 - 1.0 / 0.6 - 0.9 cm LVPW Systolic Thickness 1.4 cm LVOT Diameter 2.0 cm LV Ejection Fraction 2D Teich 4.7 % LV Ejection Fraction MOD 2C 68.7 % LV Ejection Fraction 2C AL 69.3 % LA Diameter 3.5 cm LA Width 2.9 cm LA Height 4.9 cm RA Width 2.8 cm RA Height 4.7 cm Aorta at Sinotubular Diameter 2.4 cm M-MODE Aortic Annulus Diameter 2.9 cm LA Ao Ratio MM 1.1 MV E Point Septal Separation 0.5 cm DOPPLER AV Peak Velocity 93.0 cm/s LVOT Peak Velocity 77.0 cm/s AV Area Cont Eq vti 3.2 cm squared AV Area Cont Eq pk 2.7 cm squared MV Area PHT 2.8 cm squared Mitral E to A Ratio 0.8 MV E' Velocity 37.5 cm/s Mitral E to MV E' Ratio 8.6 Mitral E to LV E' Lateral Ratio 8.2 Mitral E to LV E' Septal Ratio 9.2 TV Peak E Velocity 53.0 cm/s Right Atrial Pressure 3.0 mmHg PV Peak Velocity 105.0 cm/s RV Acceleration Time 0.1 s RV Ejection Time 0.3 s RV AcT/ET 0.4 FINDINGS Left Ventricle Normal left ventricular size, systolic function and wall thickness, with no regional wall motion abnormalities. Left ventricular ejection fraction is estimated at 65 %. Normal diastolic function. Right Ventricle Normal right ventricular size and systolic function. RVSP could not be calculated due to incomplete tricuspid regurgitation velocity profile. Right Atrium Normal right atrial size. Right atrial pressure estimated at 3 mm Hg. Left Atrium Normal left atrial size. Mitral Valve Structurally normal mitral valve. No mitral valve stenosis. Trace mitral valve regurgitation. Aortic Valve Structurally normal trileaflet aortic valve. No aortic valve stenosis. No aortic valve regurgitation. Tricuspid Valve Structurally normal tricuspid valve. No tricuspid valve stenosis. Trace tricuspid valve regurgitation. Pulmonic Valve Structurally normal pulmonic valve. No pulmonary valve stenosis. Trace pulmonary valve regurgitation. Pericardium No pericardial effusion. Aorta Normal size aortic root. Normal sized inferior vena cava. CONCLUSIONS 1. This is a technically difficult study. Ultrasound enhancing agent (Optison) was used per protocol. 2. Normal left ventricular size, systolic function and wall thickness, with no regional wall motion abnormalities. Left ventricular ejection fraction is estimated at 65 %. Normal diastolic function. 3. Normal right ventricular size and systolic function. 4. No significant valvular abnormality. 5. No significant change when compared to previous study dated 03/09/2014. Eliana Olivares MD (Electronically Signed) Final Date: 19 November 2021 16:48 S
[2021-11-17] MEDS: perflutren protein-a microsphr 0.22 mg/mL SDV 3 mL IV (14:46)
== END 2021-11-17 13:58 | disposition home or self-care (01) ==
LOC: RAD 14:01
PROVIDERS: PCP Internal Medicine; Visit Provider Internal Medicine Cardiovascular Disease
DX: I49.3 Ventricular premature depolarization (principal)
CPT/HCPCS: C8929; Q9956

== ENCOUNTER → 2022-01-10 11:44 | Outpatient (BNVA) | payer OTHER, SELFPAY | PROVIDERS: PCP Internal Medicine; Visit Provider Nurse Practitioner Family | DX: E11.9 Type 2 diabetes mellitus without complications (principal) | CPT/HCPCS: 80053; 83036 ==

== ENCOUNTER 2022-02-06 10:12 | Outpatient (CLI) | payer OTHER, SELFPAY ==
--- NOTE | 2022-02-06 10:28 | MM_ITS ---
WS: [id number] BILATERAL 3D TOMOSYNTHESIS DIGITAL SCREENING MAMMOGRAM WITH CAD CLINICAL INFORMATION: SCREENING HISTORY: Screening mammogram. Bilateral breast lumps and pain. COMPARISON: TECHNIQUE: Bilateral CC and MLO views. FINDINGS: Fatty-replaced breasts bilaterally. Incidental benign bilateral punctate calcifications are stable. N o suspicious focal mass, asymmetry, calcifications, or architectural distortion. No evidence of malig eliza. MM/[place] [id number] IMPRESSION: BI-RADS: 2-Benign FOLLOW UP: 1 Year Follow-up Recommend return to annual screening mammography.
== END 2022-02-06 10:13 | disposition home or self-care (01) ==
LOC: RAD 10:15
PROVIDERS: PCP Internal Medicine; Visit Provider Nurse Practitioner Family
DX: Z12.31 Encounter for screening mammogram for malignant neoplasm of breast (principal)
CPT/HCPCS: 77063; 77067

== ENCOUNTER → 2022-02-11 13:53 | Outpatient (BNVA) | payer OTHER, SELFPAY | PROVIDERS: PCP Internal Medicine; Visit Provider Nurse Practitioner | DX: R19.8 Other specified symptoms and signs involving the digestive system and abdomen (principal) | CPT/HCPCS: 87400 ==

== ENCOUNTER 2022-03-26 20:42 | Emergency (ER) | payer OTHER, SELFPAY ==
[2022-03-26 20:55] VITALS: BP 188/99; PULSE 65; RESP 16; TEMP 36.2; O2SAT 98; BMI 27.6
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
[2022-03-26 22:11] LABS: Hepatitis B Surface Antigen Non-Reactive (Nonreactive); Hepatitis C Virus Antibody Non-Reactive (Nonreactive)
[2022-03-26 22:20] LABS: HIV 1 & 2 Antibody Non-Reactive (Non-Reactiv); HIV 1 & 2 Antigen Non-Reactive (Non-Reactiv)
[2022-03-27 00:26] LABS: Hepatitis A Antibody IgM Non-Reactive (Nonreactive); Hepatitis B Core IgM Non-Reactive (Nonreactive)
== END 2022-03-26 21:47 | disposition home or self-care (01) ==
PROVIDERS: Emergency Provider Nurse Practitioner Family; PCP Internal Medicine
DX: Z77.21 Contact with and (suspected) exposure to potentially hazardous body fluids (principal)
CPT/HCPCS: 80074; 87806; 99282

== ENCOUNTER → 2022-06-14 15:59 | Outpatient (BNVA) | payer OTHER, SELFPAY | PROVIDERS: Visit Provider Internal Medicine | DX: R10.13 Epigastric pain (principal); E11.9 Type 2 diabetes mellitus without complications; I10 Essential (primary) hypertension; Z98.84 Bariatric surgery status | CPT/HCPCS: 80053; 83036; 83550; 84443; 85025 ==

== ENCOUNTER → 2022-10-16 10:40 | Outpatient (BNVA) | payer BC, SELFPAY | PROVIDERS: Visit Provider Family Medicine Adult Medicine | DX: B34.9 Viral infection, unspecified (principal); J30.9 Allergic rhinitis, unspecified; I10 Essential (primary) hypertension; I49.3 Ventricular premature depolarization | CPT/HCPCS: 87400; 87426 ==

== ENCOUNTER 2023-02-21 16:16 | Outpatient (CLI) | payer BC, SELFPAY ==
--- NOTE | 2023-02-21 | CT_ITS ---
WS: [id number] CT ABDOMEN AND PELVIS WITH CONTRAST HISTORY: HEMATURIA, epigastric pain. TECHNIQUE: Imaging performed of the abdomen and pelvis with IV contrast. Single phase imaging of the abdomen. Coronal and sagittal reformats are submitted. All CT scans at [facility] use at [address] one of these dose optimization techniques: automated exposure control; mA and/or kV adjustment per patient size (includes targeted exams where dose is matched to clinical indication); or iterative re construction. IV CONTRAST: Omnipaque 350; 100 mL IV. Oral contrast: No DLP: 353.64 mGy.cm COMPARISON: 08/30/2020 Lower thorax: Lung bases are clear. Heart is normal size. No hiatal hernia. Liver/biliary system: Normal size with no intrahepatic dilatation. Gallbladder: Status post cholecystectomy. Pancreas: Normal size pancreas and pancreatic duct. No adjacent inflammation. Spleen: Normal size spleen. No mass or infarct. Adrenal glands: Normal. Right kidney: Normal. Left kidney: Normal. Aorta: Normal. Lymphadenopathy: None. Free fluid: None. GI tract: Prior gastric sleeve. Mild increased amount of fluid in the small bowel but no obstruction. Normal appendix. Mild constipation. Scattered distal colonic diverticulosis without acute diverticul itis. Abdominal wall: Unremarkable abdominal wall. No hernia. Pelvis: No free fluid or adenopathy within the pelvis. Venous phleboliths along the ovarian veins. Ur inary bladder is not distended. Bones: Mild lumbar spondylitic changes. CT/CT abdomen pelvis w con* [id number] IMPRESSION: 1. No renal obstruction or calcification or mass identified. 2. Normal appendix. 3. Constipation and mild distal colonic diverticular burden. 4. Prior gastric sleeve. 5. Prior cholecystectomy.
[2023-02-21] MEDS: iohexol 350 mg/mL 500 mL Btl (per mL) IV (17:04)
== END 2023-02-21 16:17 | disposition home or self-care (01) ==
PROVIDERS: Visit Provider Internal Medicine
DX: R31.0 Gross hematuria (principal); K59.00 Constipation, unspecified; K57.30 Diverticulosis of large intestine without perforation or abscess without bleeding
CPT/HCPCS: 74177; Q9967

== ENCOUNTER 2023-08-05 08:04 | Emergency (ER) | payer BC, SELFPAY ==
[2023-08-05 08:13] VITALS: BP 149/100; PULSE 90; RESP 16; TEMP 36.8; O2SAT 97; BMI 27.3
--- NOTE | 2023-08-05 08:13 | XR_ITS ---
WS: [id number] EXAMINATION: XR chest 1V portable [id number] REASON FOR EXAM: dyspnea/cough COMPARISON: 09/04/2021 ORDER DATE: 08/05/2023 8:17 AM TECHNIQUE: A single, portable frontal chest x-ray was obtained. X-RAY FINDINGS: The lungs are clear. Pleural spaces are clear. No pleural effusions or pneumothorax. Cardiomediastinal silhouette is normal. No evidence for pulmonary edema. Soft tissue and osseous structures are unremarkable. No tubes or lines are present. IMPRESSION: Unremarkable frontal portable chest x-ray.
--- NOTE | 2023-08-05 08:18 | ECG_ITS ---
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 Measurements Intervals [place] Rate: 88 P: 47 SC: 176 QRS: 56 QRSD: 95 T: 59 QT: 371 QTc: 451 Interpretive Statements SINUS RHYTHM INTERPRETATION BASED ON A DEFAULT AGE OF 40 YEARS Compared to ECG 09/04/2021 13:13:28 No significant changes Electronically Signed On 08-05-2023 10:28:24 CDT by Eliana Olivares M.D. [id number] f
[2023-08-05 08:38] VITALS: PULSE 92; RESP 17; O2SAT 97
--- NOTE | 2023-08-05 08:38 | ED_ITS ---
HPI - Chest Pain General: Chief Complaint: Chest Pain Stated Complaint: covid+ Time Seen by Provider: 08/05/23 08:12 Source: patient Mode of arrival: ambulatory History of Present Illness: 53-year-old female presents to the emergency room with complaint of chest pain related to recent diagnosis of COVID. She has been tachycardic chest and abdominal pain. She has a history of hypertension and a history of tachycardia she is treated with carvedilol and diltiazem and losartan. She has been taking all her medications regularly. She had similar symptoms with her previous bout of COVID. No known history of coronary artery disease no history of DVT or PE MD complaint: chest pain Onset (ago): day(s) Timing of current episode: episodic Prior episodes: Yes Pain location: left chest Severity: moderate Quality: sharp Relieving factors: nothing Exacerbating factors: nothing Associated symptoms: Reports abdominal pain, fever(s) and palpitations; Deny diaphoresis, dyspnea, leg edema, nausea, sense of impending doom, syncope or vomiting Treatment prior to arrival: none Review of Systems Const: Reports: fever(s), chills, fatigue and malaise; Denies: diaphoresis ENMT: Denies: throat pain, ear or mastoid pain, nasal discharge or nasal congestion Card: Reports: chest pain and palpitations; Denies: syncope Resp: Denies: dyspnea GI: Reports: abdominal pain; Denies: nausea or vomiting : Denies: flank pain, difficulty voiding, dysuria, urinary frequency or urinary urgency Skin/Breast: Denies: rash or pruritus PFS ED PFSH: Medical History Acute viral syndrome Allergic rhinitis due to allergen Bulging of cervical intervertebral disc C6 radiculopathy COVID-19 Depression Esophageal dysfunction History of retinal detachment surgerical repair HTN (hypertension) Hyperglycemia Myalgia Obesity Palpitations Paresthesia Bulging disc, paresthesia upper extremities, Post-traumatic stress disorder, chronic Reflux esophagitis Sleep apnea, obstructive Vitamin D deficiency Surgical History History of back surgery History of carpal tunnel release of both wrists History of cholecystectomy History of colonoscopy with polypectomy 1999, 2010 History of hysterectomy History of resection of stomach History of tonsillectomy Status post laparoscopic sleeve gastrectomy Family History Father Heart disease [place] age 46, CAD (coronary artery disease), Onset Age: 40 Lung disease Stroke Family/Other Diabetes General Sister Heart disease sister had [place], LAD involvement @ age 42 CAD (coronary artery disease), Onset Age: 43 Diabetes Daughter Clotting disorder Brother CAD (coronary artery disease) Diabetes Lung disease Mother Hyperlipidemia CAD (coronary artery disease) Cancer Dementia Grandmother Dementia Grandfather Dementia Denies family history of Chronic kidney disease (CKD) Suicide Anesthesia complication Bleeding disorder Social History Smoking and tobacco status: never smoked Alcohol intake: current Alcohol intake frequency: holidays/special occasions only Substance/Drug Use: never Physical Exam Const: COMMON NORMALS: no acute distress GENERAL APPEARANCE: cooperative and comfortable ORIENTATION/CONSCIOUSNESS: Yes awake, Yes oriented to person, Yes oriented to place and Yes oriented to time HENMT: COMMON NORMALS: normocephalic, atraumatic and hearing grossly normal bilaterally HEAD & SCALP: normocephalic and atraumatic Resp: COMMON NORMALS: normal respiratory effort, No retractions, No use of accessory muscles and clear to auscultation bilaterally AUSCULTATION: clear to auscultation bilaterally Cardio: COMMON NORMALS: regular rate, regular rhythm and No murmurs present (Cardio) RATE: regular rate RHYTHM: regular rhythm GI: COMMON NORMALS: Soft to palpation and No hepatosplenomegaly present AUSCULTATION: Yes normoactive bowel sounds PALPATION: Yes Soft to palpation, No Tenderness to palpation present (GI), No Guarding due to palpation present (GI) and Yes No hepatosplenomegaly present Extremity: COMMON NORMALS: normal to inspection, capillary refill normal, no clubbing, cyanosis or edema, no calf tenderness and no pedal edema Neuro: SENSORIUM/ORIENTATION: Yes oriented to person, Yes oriented to place and Yes oriented to time Skin: COMMON NORMALS: no rashes or lesions noted GENERAL SKIN EXAM: no rashes or lesions noted Course Vital Signs: Vital signs: Vital Signs Temperature 98.3 F 08/05/23 08:13 Pulse Rate 92 08/05/23 08:38 Respiratory Rate 17 08/05/23 08:38 Blood Pressure 149/100 08/05/23 08:13 Pulse Oximetry 96 08/05/23 10:23 Oxygen Delivery Me thod Room Air 08/05/23 08:38 MDM - Chest Pain Medical Decision Making Patient has ambulatory O2 sat that is normal no believe she actually has a PE at this time her symptoms seem to be more pleuritic in nature there is no sign of pneumonia or pneumothorax. Treat symptomatically pain medications given to use if needed. 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 Continue self-isolation. Medical Records I reviewed the patient's medical records. Lab Data I reviewed the patient's lab results. All radiology interpretation(s) finalized by discharge Discharge Plan Discharge Patient Disposition: Home Clinical Impression: COVID-19 Condition: Stable Prescriptions: New tramadol 50 mg tablet 50 mg PO Q6H PRN (Reason: pain) Qty: 15 0RF No Action Excedrin Migraine 250-250-65 mg tablet 1 - 2 tab PO DAILY PRN (Reason: Headache) diltiazem HCl 30 mg tablet 30 mg PO QID PRN Rx Instructions: Use up to 4 times daily as needed mecobalamin (vitamin B12) 1,000 mcg tablet,disintegrating 1,000 mcg sublingual DAILY Rx Instructions: place tablet under tongue and allow to dissolve for at least30 secs before swallowing bupropion HCl [Wellbutrin XL] 300 mg tablet extended release 24 hr 150 mg PO QAM losartan 50 mg tablet 25 mg PO DAILY cholecalciferol (vitamin D3) 25 mcg (1,000 unit) capsule 25 mcg PO DAILY Hair,Skin and Nails Tablet 1 tab PO DAILY melatonin 5 mg tablet 5 mg PO .HS PRN carvedilol 3.125 mg tablet 3.125 mg PO BID Qty: 60 2RF Rx Instructions: must administer with a meal/food Ozempic 1 mg/dose (4 mg/3 mL) pen injector 2 mg SUBCUT .weekly albuterol sulfate [Ventolin HFA] 90 mcg/actuation HFA aerosol inhaler 2 puff inhalation Q6H PRN (Reason: shortness of breath or wheezing) Qty: 8.5 0RF diltiazem HCl 300 mg capsule,extended release 24hr 300 mg PO DAILY Qty: 90 3RF Discharge Orders: Discharge ED (Routine); Ordered 08/05/23 Ordered By: Kahlil Davis Referrals: Aziza Groves [Primary Care Provider] - Discharge Diet: Usual diet Discharge Activity: Resume usual activity Patient Instructions: Opioid Safety, Pain Management Activity Restrictions/Additional Instructions: You are seen for chest discomfort. Your EKG was normal there is no sign of pneumonia or pneumothorax on your chest x-ray. Your oxygen saturation and heart rate are stable. Clinically there is no sign of pulmonary embolism. Suspect the discomfort is due to your COVID. Use of Tylenol or ibuprofen as needed continue to take your regular prescribed medications. Coding Level of Care Code ED Dialysis Registered Nurse for Nickie Gordon
[2023-08-05 10:23] VITALS: O2SAT 96; O2SAT 99
== END 2023-08-05 10:55 | disposition home or self-care (01) ==
PROVIDERS: Emergency Provider Family Medicine; PCP Nurse Practitioner Family
DX: U07.1 COVID-19 (principal); I10 Essential (primary) hypertension
CPT/HCPCS: 71045; 93005; 99284

== ENCOUNTER 2023-08-05 11:14 | Outpatient (CLI) | payer BC, SELFPAY ==
[2023-08-05 13:54] LABS: Adenovirus Not Detected (NOT DETECT); Chlamydia Pneumoniae Not Detected (NOT DETECT); Coronavirus 229E,HKU1,NL63,OC4 Not Detected (NOT DETECT); Human Metapneumovirus Not Detected (NOT DETECT); Human Rhinovirus/Enterovirus Not Detected (NOT DETECT); Influenza A Not Detected (NOT DETECT); Influenza A H1 Not Detected (NOT DETECT); Influenza A H1-2009 Not Detected (NOT DETECT); Influenza A H3 Not Detected (NOT DETECT); Influenza B Not Detected (NOT DETECT); Mycoplasma Pneumoniae Not Detected (NOT DETECT); Parainfluenza Virus Type 1 Not Detected (NOT DETECT); Parainfluenza Virus Type 2 Not Detected (NOT DETECT); Parainfluenza Virus Type 3 Not Detected (NOT DETECT); Parainfluenza Virus Type 4 Not Detected (NOT DETECT); Respiratory Syncytial Virus A Not Detected (NOT DETECT); Respiratory Syncytial Virus B Not Detected (NOT DETECT)
[2023-08-05 14:03] LABS: SARS-COV-2 Detected (NOT DETECT)
== END 2023-08-05 11:15 | disposition home or self-care (01) ==
PROVIDERS: PCP Nurse Practitioner Family; Visit Provider Family Medicine
DX: J06.9 Acute upper respiratory infection, unspecified (principal)
CPT/HCPCS: 87635

== ENCOUNTER 2023-08-26 12:02 | Outpatient (CLI) | payer BC, SELFPAY ==
[2023-08-26 12:33] VITALS: BMI 27.3
--- NOTE | 2023-08-26 12:34 | ECG_ITS ---
[facility] Test Date: 2023-08-26 Pat Name: Reena Calvo Department: Room: Gender: Female Instructor Industrial Design: Eleonora MaresEli : 1970 Requested By: Aziza Groves Order Number: [id number] JAVIER Chacon MD: Eliana Olivares M.D. Interpretive Statements NAME OF STUDY: TREADMILL STRESS TEST INDICATION: Chest Pain Baseline blood pressure of 160/89 mm Hg, heart rate of 100 beats per minute and oxygen saturation of 97%. EKG showed sinus tachycardia, normal axis with normal ST-Ts. ??? The patient exercised for 8 minutes 57 seconds on a standard Pawan protocol. Patient attained a maximum heart rate of 172 beats per minute(102% of the maximum predicted heart rate) with a blood pressure at the peak exercise of 199/102 mm Hg and oxygen saturation of 96%. The EKG at the peak exercise revealed sinus tachycardia with no significant ST-T wave changes. Patient did not have any chest painwith the exercise. You isolated PVCs noted during exercise. During the recovery phase, there were no new changes. ??? Blood pressure at the end of the recovery phase was 149/97 mm Hg with a heart rate of 105 beats per minute and oxygen saturation of 93%. ??? CONCLUSION: 1. Normal EKG response to treadmill exercise. 2. No exercise-induced chest pain or cardiac arrhythmia. 3. Excellent exercise tolerance, attained a maximum of 10.2 METs. 4. Baseline hypertension with normal response to exercise. Electronically Signed On 08-27-2023 17:20:02 CDT by Eliana Olivares M.D. [id number]
[2023-08-26 13:22] VITALS: BP 149/97; PULSE 105
== END 2023-08-26 12:03 | disposition home or self-care (01) ==
PROVIDERS: PCP Nurse Practitioner Family; Visit Provider Nurse Practitioner Family
DX: R07.9 Chest pain, unspecified (principal); I10 Essential (primary) hypertension
CPT/HCPCS: 93017